=== PATIENT | female | born 1995 | race Hispanic/Latino ===

== ENCOUNTER 2017-04-12 08:44 | Emergency (ER) | payer BC ==
[2017-04-12] MEDS ORDERED: Benzonatate 100 MG CAP ONE (10:40)
--- NOTE | 2017-04-12 11:05 | RAD ---
PA AND LATERAL VIEWS CHEST: Date: 04/12/17 HISTORY: Cough and congestion. FINDINGS: The cardiomediastinum is normal. The lungs are well expanded and clear. The bony thorax is normal. IMPRESSION: Normal exam. POS: [facility]
[2017-04-12] MEDS ORDERED: Dexamethasone 4 mg/ml Vial ONE (11:15)
== END 2017-04-12 11:52 | disposition home or self-care (01) ==
LOC: ERS 08:44
DX: J40 Bronchitis, not specified as acute or chronic (principal); F32.9 Major depressive disorder, single episode, unspecified
CPT/HCPCS: 71020; 96372; J1100

== ENCOUNTER 2017-07-18 14:28 | Inpatient (IN) | payer BC ==
[2017-07-18] MEDS ORDERED: Ondansetron HCl/PF 4 MG/2 ML Vial ONE (14:58)
[2017-07-18] MEDS ORDERED: Morphine 4 MG/ML VIAL ONE (14:58)
[2017-07-18 15:07] LABS: #Basophils 0.1 thou/uL (0.0-0.2); #Eosinphils 0.1 thou/uL (0.0-0.7); #Lymphocytes 4.2 thou/uL (1.20-3.40); #Monocytes 0.6 thou/uL (0.11-0.59); #Neutrophils 5.6 thou/uL (1.40-6.50); %Basophils 0.8 % (0.0-1.0); %Eosinophils 0.7 % (0.0-10.0); %Lymphocytes 39.6 % (28.0-48.0); %Neutrophils 52.9 % (31.0-61.0); Hemoglobin 14.3 g/dL (12.0-16.0); Mean Corpuscular HGB CONC 33.3 g/dL (32.0-36.0); Mean Corpuscular Hemoglobin 31.2 pg (25.0-35.0); Mean Corpuscular Volume 93.6 fl (77.0-87.0); Mean Platelet Volume 8.8 fL (7.4-10.4); Platelet Count 289 thou/uL (130-400); RBC Distribution Width 11.7 % (11.5-14.5); Red Blood Cell (RBC) Count 4.58 mill/uL (4.00-5.20); White Blood Cell (WBC) Count 10.5 thou/uL (4.8-10.8)
[2017-07-18 15:29] LABS: ALT (SGPT) 18 U/L (8-55); AST (SGOT) 19 U/L (5-34); Albumin 5.2 g/dL (3.5-5.0); Alkaline Phosphatase 98 U/L (40-150); Anion Gap 17 mmol/L (10-20); BUN (Urea Nitrogen) 9 mg/dL (7.0-18.7); Bilirubin, Total 0.5 mg/dL (0.2-1.2); CK (CPK) 67 U/L (29-168); Calc. Creatinine Clearance 0 mL/min (70-130); Calcium 10.6 mg/dL (7.8-10.44); Carbon Dioxide 20 mmol/L (22-29); Chloride 105 mmol/L (98-107); Estimated GFR-MDRD 78; Globulin 3.4 g/dL (2.4-3.5); Glucose 89 mg/dL (70-105); Lipase 10 U/L (8-78); Potassium 4.1 mmol/L (3.5-5.1); Protein, Total 8.6 g/dL (6.0-8.3); Sodium 138 mmol/L (136-145)
[2017-07-18] MEDS ORDERED: Promethazine HCl 25 MG/ML VIAL ONE (16:46)
[2017-07-18 16:59] LABS: Bilirubin Negative (Negative); Blood, Urine Trace (Negative); Clarity CLOUDY (Clear); Glucose, Urine (Dipstick) Negative (Negative); Leukocyte Large (Negative); Nitrite Negative (Negative); Protein, Urine (Dipstick) Negative (Neg-Trace); Specific Gravity, Urine 1.015 (1.002-1.036); Urobilinogen 0.2 mg/dL (0.2-1.0)
[2017-07-18 17:01] LABS: Bacteria/HPF 2+ HPF (None Seen); Hyaline Casts/LPF 4-6 HYALINE CAST LPF (0-3 Hyaline); Pathc Cast-AUWi Flag 0.94 (0-2.49)
[2017-07-18 17:15] LABS: RBC/HPF 0-3 HPF (0-3)
--- NOTE | 2017-07-18 18:40 | HP ---
DATE OF ADMISSION: 07/18/2017 PRIMARY CARE PHYSICIAN: Linda Ortiz M.D. CHIEF COMPLAINT: Nausea, vomiting, abdominal cramping, and diarrhea with some fever. HISTORY OF PRESENT ILLNESS: The patient is a 22-year-old female who is admitted to the [facility] with 2-week history of fever with some nausea. She vomited twice today. This was associated w ith some abdominal cramping. Also, she has diarrhea for approximately 2 weeks with on and off blood and mucus. She did not go to the doctor because she thought that she had the flu. She had some body aches and muscle aches. She has extensive history of GI problems. Apparently in January, she was kenyatta janak for multiple UTIs with multiple antibiotics and she developed C. difficile infection colitis. Sh jaya had cholecystectomy done and she had recurrence of Clostridium difficile infection after she had br onchitis and was given antibiotics. PAST MEDICAL HISTORY: Also positive for chronic tachycardia. PAST SURGICAL HISTORY: 1. Cholecystectomy. 2. 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 CURRENT MEDICATIONS: Lorazepam 0.5 mg p.r.n. as needed, promethazine 0.5 mg p.r.n. as needed, dicycl omine 20 mg p.r.n. as needed, Zofran 4 mg p.r.n. as needed, Effexor 75 mg once a day and sleep aid ov [id number]. ALLERGIES: None. FAMILY HISTORY: Mother has some depression and anxiety. Father is healthy. He does not have any di agnosis. REVIEW OF SYSTEMS: All 14 systems were reviewed and symptoms only mentioned in HPI are positive plus occasional headaches and some shortness of breath during the episodes of sickness. PHYSICAL EXAMINATION: VITAL SIGNS: Her blood pressure is 128/70, pulse oximetry is 100% on room air. Pulse is 140. HEENT: Head: Atraumatic, normocephalic. Eyes: PERRLA. Conjunctivae pinkish. Oral mucosa is dry. NECK: Supple, no lymphadenopathy. Thyroid is not palpable. LUNGS: Clear. HEART: S1, S2 normal. No S3, no S4, no murmur. ABDOMEN: Soft, somewhat tender in the mid epigastric area and right side of the abdomen in the upper parts. No guarding, no masses. EXTREMITIES: No clubbing, cyanosis or edema. NEUROLOGIC: She is alert and oriented x4. There is not any sensorimotor deficits are present. Cran ial nerves are intact. LABORATORY DATA: Showed a white count of 10.5, hemoglobin 14.3, hematocrit 42.9, platelet count is 2 89. Sodium of 130, potassium 4.1, chloride 105, CO2 20, BUN 9, creatinine 0.92. Lactic acid 2.3, ca lcium 10.6, total protein 8.6, albumin 5.2, and the rest of chemistry within normal limits. Lipase i s 10. IMPRESSION: 1. Acute gastroenteritis of unclear etiology, most likely is related to Clostridium difficile infect ion, but we do not have positive testing back yet. 2. Tachycardia, most likely related to dehydration plus baseline tachycardia. 3. Depression/anxiety. 4. Metabolic acidosis, mild, secondary to bicarb loss with her BM. 5. Dehydration. PLAN: Admission to telemetry floor. Condition is fair. Activity: Bed rest and bathroom privileges . IV fluids. Normal saline at 150 mL per hour, Zofran p.r.n., Phenergan p.r.n. IV. GI consultation with Dr. Addison, who was notified by an emergency room physician. I am going to wait for C. difficile results before I start her on any medications. Cultures on her blood and urine are done. We are wa iting for the results. She will continue on intravenous fluids and GI consultation is in place with Dr. Addison.
--- NOTE | 2017-07-18 20:13 | CON ---
DATE OF CONSULTATION: 07/18/2017 HISTORY OF PRESENT ILLNESS: The patient is a 22-year-old female, who has been followed by Renata Donis for recurrent Clostridium difficile diarrhea. She underwent a fecal transplant on 06/24/20. On 07/10/2017, she underwent stool examination for lactoferrin and Clostridium difficile, all of which were negative. She reports for the last few days, she has been having diffuse abdominal cramp s and diarrhea. She has had nausea and vomiting as well. She has undergone previous colonoscopy at [facility] in 2016. She was diagnosed at that time with hemorrhoids and irritable bowel syndrome. She does report several bowel movements have been bloody. PAST MEDICAL HISTORY: Significant for, 1. Anxiety. 2. Recurrent Clostridium difficile diarrhea. 3. Irritable bowel syndrome. PAST SURGICAL HISTORY: Cholecystectomy, fecal transplantation, urinary tract infections. MEDICATIONS: Lorazepam as needed, promethazine as needed, dicyclomine 20 mg p.r.n. ALLERGIES: No known allergies. SOCIAL HISTORY: She does not smoke or drink. FAMILY HISTORY: Negative for GI or liver disease. REVIEW OF SYSTEMS: Ten systems were reviewed and were negative except for above. PHYSICAL EXAMINATION: GENERAL: Shows an ill-appearing female in no acute distress. VITAL SIGNS: Stable. She is afebrile. HEENT: Unremarkable. NECK: Supple. CHEST: Clear. CARDIOVASCULAR: Regular rate and rhythm. ABDOMEN: Soft and nontender without organomegaly or masses. Bowel sounds are present and normoactiv e. RECTAL: Deferred. EXTREMITIES: Normal. NEUROLOGIC: Nonfocal. LABORATORY DATA: Laboratory shows a white blood cell count 10.5, hemoglobin 14.3, hematocrit of 42.9 . Chemistries are significant for calcium 10.6, total serum protein 8.6, albumin 5.2, lactic acid is 2.3. Urine shows large leukocyte esterase. Urine wbc's greater than 50, 4-6 squamous epithelial ce lls, and 2+ bacteria. ASSESSMENT: 1. Abdominal pain, diarrhea, nausea, and vomiting. Possibilities include recurrent Clostridium diff icile infection. 2. History irritable bowel syndrome. 3. Internal hemorrhoids. 4. Urinary tract infection. 5. Dehydration. RECOMMENDATIONS: 1. Admission. 2. IV fluids. 3. Clear liquids. 4. Urinary culture prior to beginning antibiotics. 5. Stool for Clostridium difficile prior to beginning any treatment. 6. We will follow with you.
[2017-07-18 20:37] LABS: Lactic Acid 1.2 mmol/L (0.5-2.2)
[2017-07-18] MEDS: Promethazine HCl 25 MG/ML VIAL IM/IV PRN (23:59)
[2017-07-19 00:09] VITALS: BMI 30.2
[2017-07-19] MEDS: Sodium Chloride 0.9% 1,000 ML IV SCH ×2 (08:24)
[2017-07-19] MEDS: Ondansetron HCl/PF 4 MG/2 ML Vial IVP PRN (12:16)
--- NOTE | 2017-07-19 14:55 | PRG ---
DATE OF SERVICE: 07/19/2017 SUBJECTIVE: The patient is seen and examined at bedside. She had one bowel movement, which was loos e around 2:00 this morning, but she was not able to get the sample as she flushed it, so we still wer e not able to get any sample for the testing. OBJECTIVE: VITAL SIGNS: Blood pressure is 103/66, pulse is 91, temperature is 97.7, respiratory rate is 16, O2 saturation is 100. HEENT: Head is atraumatic, normocephalic. Eyes PERRLA, conjunctivae pink. Oral mucosa is moist tod ay. NECK: Supple, no JVD. LUNGS: Clear. HEART: S1, S2 normal. ABDOMEN: Soft, nontender, obese. Bowel sounds are present. EXTREMITIES: No clubbing, cyanosis or edema. NEUROLOGIC: She is alert and oriented x4. There is not any motor or sensory deficit present. Crani al nerves are intact. LABORATORY DATA: Since she was not able to give us any stool sample, we do not have any lab works to day. Microbiology showed blood cultures negative x2. Stool occult blood came back negative. ASSESSMENT AND PLAN: 1. Recurrent diarrhea of unclear etiology at this point. Since she was not able to give us a stool specimen, as soon as she has another bowel movement, we would check her for C. difficile antigen and toxins along with lactoferrin and stool culture. Since she is at high risk for recurrent C. difficil e infection, we have to have proven culture positive workup before we start using any antimicrobials. 2. Tachycardia, resolved. 3. Metabolic acidosis, mild. We do not have any BMP this morning, but most likely her acidosis impr torsten with IV fluids. 4. Dehydration, improved. PLAN: As mentioned above, I am going to stop her IV fluids since she is taking fluids orally now and her diarrhea stopped and she received enough fluids so far. The patient was seen by Dr. Addison, who r ecommends to obtain culture before we start treating her empirically, so that is what we are going t o do, so we are waiting for the stool sample tested.
[2017-07-19] MEDS: Promethazine HCl 25 MG/ML VIAL IM/IV PRN (15:01)
--- NOTE | 2017-07-19 15:37 | PRG ---
DATE OF SERVICE: 07/19/2017 SUBJECTIVE: Ms. Tiwari around 3:00 p.m. today, went to the bathroom and she was trying to wash her fa ce and she all of a sudden started feeling dizzy. She tried to ease herself down to the floor, but s he fell and lost consciousness, this was unwitnessed incident and she was found by the nurse and was taken to her bed and during this time, her cardiac monitoring did not show any cardiac arrhythmia. H er vitals were checked and they were within normal limits. I do not expect that this was significant syncopal episodes other than vasovagal etiology. We will check orthostatic changes on her. PHYSICAL EXAMINATION: GENERAL: Did not reveal any changes except for some twitching of her eyebrows bilaterally. NEUROLOGICAL: Did not show any abnormalities. She is able to answer my all questions and she follow s my commands. She moves all 4 extremities. Neurological examination is nonfocal. LUNGS: Clear. HEART: S1, S2, slightly tachycardic. No S3, no S4. PLAN: We will do neuro checks on her every 2 hours and we will obtain the CT of the brain without co ntrast.
--- NOTE | 2017-07-19 19:17 | CT ---
CT OF HEAD NONCONTRAST 07/19/17 INDICATION: Unwitnessed fall with headache, pain. FINDINGS: There is no evidence of ventriculomegaly, mass effect, midline shift or acute intracranial hemorrhage . No depressed calvarial fracture or pneumocephalus. IMPRESSION: There is no evidence of acute intracranial hemorrhage or mass effect. POS: [facility]
--- NOTE | 2017-07-20 | PRG ---
DATE OF SERVICE: 07/19/2017 SUBJECTIVE: The patient had nausea, but no vomiting. She reports she has had no bowel movements sin ce yesterday. OBJECTIVE: VITAL SIGNS: Temperature 97.9, pulse 113, respiratory rate 18, blood pressure 117/74. LABORATORY STUDIES: Microbiology shows influenza A and B to be negative. Urine culture primarily sh owed 25,000 to 50,000 mixed skin chaz present. Blood cultures are negative. Stool for occult blood is negative and stool for C.diff is not been submitted. Patient underwent a brain CT today showed n o abnormalities. ASSESSMENT: 1. Abdominal pain, diarrhea, nausea, and vomiting - it would be unusual for Clostridium difficile to not have any bowel movements over 24-hours. Therefore, I doubt this is her recurrent Clostridium di fficile infection. 2. History of irritable bowel syndrome. 3. Dehydration. RECOMMENDATIONS: 1. Obtain stool for Clostridium difficile prior to beginning any empiric treatment. 2. Await urine culture prior to beginning antibiotics. 3. Antiemetics.
[2017-07-20] MEDS: Venlafaxine HCl XR 75 MG CAP PO SCH (08:49)
[2017-07-20] MEDS: Ondansetron HCl/PF 4 MG/2 ML Vial IVP PRN (10:19)
[2017-07-20] MEDS: Meclizine HCl 25 MG TAB PO SCH ×2 (11:57→17:42)
--- NOTE | 2017-07-20 14:29 | PRG ---
DATE OF SERVICE: 07/20/2017 SUBJECTIVE: The patient is seen and examined at the bedside. She complains about nausea, especially after drinking water. She did not have any bowel movements yesterday or today. She noticed that wh en she changes position, she gets very dizzy. OBJECTIVE: VITAL SIGNS: Blood pressure is 118/72, temperature is 98.4, pulse is 104, respiratory rate is 18, an d O2 saturation is 96% on room air. HEENT: Atraumatic, normocephalic. Eyes are PERRLA. Conjunctivae pinkish. Oral mucosa is moist. NECK: Supple. LUNGS: Clear. HEART: S1, S2 normal, no S3, no S4, no murmur. Slightly tachycardic. ABDOMEN: Obese, soft, and nontender. EXTREMITIES: No clubbing, cyanosis or edema. NEUROLOGIC: She is alert and oriented x4. There is no any sensory or motor deficits present. Crani al nerves are intact. She developed dizziness while changing position from lying flat to sitting up, which lasts up to 20 seconds and it gets better after that. None today. IMPRESSION: 1. Abdominal pain, diarrhea, nausea, and vomiting without additional bowel movement in the last almo st 30 hours, so we doubt that she has recurrent Clostridium difficile infection, although she had 3 e pisodes in the past. 2. Irritable bowel syndrome. 3. Dehydration, improved. 3. Benign positional vertigo. PLAN: Start her on meclizine. She is nauseated with taking liquids and food. We will see how this helps and she should be ambulating more and she should be able to go home in the next 24 hours since her urine culture came back 25,000-50,000 colonies of mixed skin chaz, which is nondiagnostic, so [place] does not have any UTI and blood cultures came back negative in 48 hours, so we are going to ambulat e her and see whether we can send her home tonight. If not, she should be able to go home tomorrow, maybe on p.r.n. meclizine for her benign positional vertigo and some antiemetics and antinausea medic ation.
[2017-07-20] MEDS: Promethazine HCl 25 MG/ML VIAL IM/IV PRN (14:36)
--- NOTE | 2017-07-20 16:51 | PRG ---
DATE OF SERVICE: 07/20/2017 SUBJECTIVE: The patient has not had any bowel movements today or yesterday. She is complaining of n ausea, but has not had any vomiting. OBJECTIVE: Temperature 98.6, pulse 104, respiratory rate 18, blood pressure 118/72. ASSESSMENT: 1. Persistent nausea - patient had normal endoscope in 02/2017 for similar symptoms. 2. Diarrhea - this seems to have resolved when the patient came into the hospital. RECOMMENDATIONS: 1. Continue antiemetics. 2. We will try a trial of IV Reglan. 3. Stool for C. difficile when she does eventually have a bowel movement.
[2017-07-20] MEDS: Metoclopramide HCl 10 MG/2 ML VIAL IVP SCH (21:32)
[2017-07-21] MEDS: Metoclopramide HCl 10 MG/2 ML VIAL IVP SCH ×3 (05:07→21:09)
[2017-07-21] MEDS: Meclizine HCl 25 MG TAB PO SCH ×3 (05:07→17:16)
[2017-07-21 05:52] LABS: #Eosinphils 0.1 thou/uL (0.0-0.7); #Monocytes 0.6 thou/uL (0.11-0.59); #Neutrophils 4.9 thou/uL (1.40-6.50); %Basophils 0.5 % (0.0-1.0); %Eosinophils 1.3 % (0.0-10.0); %Lymphocytes 34.9 % (28.0-48.0); %Neutrophils 56.4 % (31.0-61.0); Hemoglobin 12.4 g/dL (12.0-16.0); Mean Corpuscular HGB CONC 34.1 g/dL (32.0-36.0); Mean Platelet Volume 9.5 fL (7.4-10.4); Platelet Count 226 thou/uL (130-400); RBC Distribution Width 11.7 % (11.5-14.5); Red Blood Cell (RBC) Count 3.87 mill/uL (4.00-5.20); White Blood Cell (WBC) Count 8.7 thou/uL (4.8-10.8)
[2017-07-21 06:16] LABS: ALT (SGPT) 14 U/L (8-55); AST (SGOT) 18 U/L (5-34); Alkaline Phosphatase 73 U/L (40-150); Anion Gap 13 mmol/L (10-20); BUN (Urea Nitrogen) 14 mg/dL (7.0-18.7); Bilirubin, Total 0.7 mg/dL (0.2-1.2); CRP (Inflammatory) 1.01 mg/dL (= or < 0.5); Calc. Creatinine Clearance 111 mL/min (70-130); Calcium 9.7 mg/dL (7.8-10.44); Carbon Dioxide 23 mmol/L (22-29); Chloride 107 mmol/L (98-107); Estimated GFR-MDRD 80; Globulin 2.8 g/dL (2.4-3.5); Glucose 63 mg/dL (70-105); Potassium 3.6 mmol/L (3.5-5.1); Protein, Total 6.8 g/dL (6.0-8.3); Sodium 139 mmol/L (136-145)
[2017-07-21] MEDS: Venlafaxine HCl XR 75 MG CAP PO SCH (08:28)
--- NOTE | 2017-07-21 12:23 | PRG ---
DATE OF SERVICE: 07/21/2017 SUBJECTIVE: The patient continues to complain of some dizziness and nausea. She has had some cracke rs this morning. She says she may feel like eating lunch. She finally have submitted a stool sample for C. diff; however, this was a formed stool. OBJECTIVE: VITAL SIGNS: Temperature is 99.3, pulse 103, respiratory rate 16 and blood pressure 99/58. CHEST: Clear. CARDIOVASCULAR: Regular rate and rhythm. ABDOMEN: Soft and nontender. No rebound or guarding is noted. No hepatosplenomegaly is appreciable . LABORATORY DATA: Shows a white blood cell count of 8.7, hemoglobin 12.4 and hematocrit 36.4. Chemis tries show a glucose of 63. C-reactive protein of 1.01. ASSESSMENT: 1. Persistent nausea - this may be from some vertigo. 2. Diarrhea - resolved and the patient is now having formed stool. 3. History of Clostridium difficile. RECOMMENDATIONS: 1. A 24-hour urine collection for 5-HIAA. 2. Repeat urinalysis. 3. Await stool results, although C. diff is unlikely with formed stool. 4. Continue IV metoclopramide.
[2017-07-21 13:12] LABS: Bilirubin Small (Negative); Blood, Urine Trace (Negative); Clarity CLOUDY (Clear); Glucose, Urine (Dipstick) Negative (Negative); Leukocyte Moderate (Negative); Nitrite Negative (Negative); Protein, Urine (Dipstick) Trace mg/dL (Neg-Trace)
[2017-07-21 13:15] LABS: Bacteria/HPF 1+ HPF (None Seen); Hyaline Casts/LPF 4-6 HYALINE CAST LPF (0-3 Hyaline)
[2017-07-21 13:17] LABS: Yeast-AUWi Flag 78.1 (0-25.0)
[2017-07-21 13:33] LABS: RBC/HPF 0-3 HPF (0-3)
[2017-07-21 13:34] LABS: Yeast-All Forms None Seen HPF (None Seen)
--- NOTE | 2017-07-21 14:26 | PDOC.PN ---
- Subjective Encounter Start Date: 07/21/17 Encounter Start Time: 08:00 Pt seen for followup re: nausea. Denies chest pain, shortness of breath, fevers or chills. No diarrhea. - Objective Resuscitation Status: Resuscitation Status FULL:Full Resuscitation MAR Reviewed: Yes Vital Signs & Weight: Vital Signs (12 hours) Temp Pulse Resp BP BP Pulse Ox 07/21/17 11:38 99 F 87 18 105/67 99 07/21/17 07:45 99.3 F 103 H 16 97 07/21/17 07:44 99.3 F 103 H 16 99/58 L 97 07/21/17 04:00 98.6 F 98 18 99/58 L 98 Weight Admit Weight 160 lb Weight 155 lb 1.6 oz I&O: 07/20/17 07/21/17 07/22/17 06:59 06:59 06:59 Intake Total 240 Output Total 125 Balance 115 Result Diagrams: 07/21/17 04:13 07/21/17 04:13 EKG Reviewed by me: Yes (Tele: NSR) Phys Exam - Physical Examination Constitutional: NAD HEENT: moist MMs Neck: supple Respiratory: clear to auscultation bilateral Cardiovascular: RRR Gastrointestinal: soft, non-tender, no distention, positive bowel sounds Neurological: moves all 4 limbs Psychiatric: normal affect Dx/Plan (1) Nausea Code(s): R11.0 - NAUSEA Status: Acute (2) Acute gastroenteritis Code(s): K52.9 - NONINFECTIVE GASTROENTERITIS AND COLITIS, UNSPECIFIED Status : Acute - Plan PT/OT, out of bed/ambulate, DVT proph w/SCDs Continue IV fluids, antiemetics. Await stool cultures. Urinalysis still suggestive of UTI, await urine cultures. * . Review of Systems - Review of Systems Constitutional: negative: fever, chills, sweats, weakness, malaise ENT: negative: Ear Pain, Ear Discharge, Nose Pain, Nose Discharge, Nose Congestion, Mouth Pain, Mouth Swelling, Throat Pain, Throat Swelling Respiratory: negative: Cough, Dry, Shortness of Breath, Hemoptysis, SOB with Excertion, Pleuritic Pain, Sputum, Wheezing Cardiovascular: negative: chest pain, palpitations, orthopnea, paroxysmal nocturnal dyspnea, edema, light headedness Gastrointestinal: Nausea. negative: Vomiting, Abdominal Pain, Diarrhea, Constipation, Melena, Hematochezia Neurological: Other (dizziness) - Medications/Allergies Allergies/Adverse Reactions: Allergies Allergy/AdvReac Type Severity Reaction Status Date / Time No Known Drug Allergies Allergy Verified 06/21/17 13:04 Medications: Current Medications Meclizine HCl (Antivert) 25 mg PO 0600,1200,1800 [facility] Last Admin: 07/21/17 12:53 Dose: 25 mg Metoclopramide HCl (Reglan) 10 mg IVP Q8HR [facility] Last Admin: 07/21/17 05:07 Dose: 10 mg Ondansetron HCl (Zofran) 4 mg IVP Q6H PRN PRN Reason: Nausea/Vomiting Last Admin: 07/20/17 10:19 Dose: 4 mg Venlafaxine HCl (Effexor Xr) 75 mg PO DAILY [facility] Last Admin: 07/21/17 08:28 Dose: 75 mg
[2017-07-22] MEDS: Metoclopramide HCl 10 MG/2 ML VIAL IVP SCH (05:48)
[2017-07-22] MEDS: Meclizine HCl 25 MG TAB PO SCH ×3 (05:48→17:37)
[2017-07-22] MEDS: Venlafaxine HCl XR 75 MG CAP PO SCH (08:27)
[2017-07-22] MEDS: Metoclopramide HCl 10 MG TAB PO SCH ×3 (11:40→20:20)
[2017-07-22] MEDS: Ondansetron HCl/PF 4 MG/2 ML Vial IVP PRN (13:08)
--- NOTE | 2017-07-22 14:19 | DIS ---
DATE OF ADMISSION: 07/18/2017 DATE OF DISCHARGE: 07/22/2017 PRIMARY CARE PROVIDER: Linda Ortiz M.D. DISCHARGE DISPOSITION: Home. FINAL DIAGNOSES: Irritable bowel syndrome, abdominal pain, nausea, obesity, sinus tachycardia, dizzi ness. DISCHARGE MEDICATIONS: Effexor XR 75 a day, Reglan 10 mg p.o. a.c. and at bedtime, meclizine 25 mg p .o. q.8 hours p.r.n. dizziness. ALLERGIES: No known allergies. PENDING AT THE TIME OF DISCHARGE: Results of 24-hour urine for 5-Hydroxyindoleacetic acid. CODE STATUS: FULL. HOSPITAL COURSE: The patient was admitted to the [facility] through [facility] for nausea, vomiting, abdominal pain, diarrhea. Per surgery, cholecystectomy. It is pertinent that the patient had a prior history of C. difficile colitis. She was seen in consultation by Dr. Hal Addison. She had no procedures during her hospital stay. Her stool workup showed presenc e of elevated lactoferrin, Campylobacter, Shiga toxin negative. Influenza A and B was negative. Blo od cultures negative at 48 hours, fecal occult blood negative. We were unable to do a titer for C. d iff and she had no diarrhea during her hospital stay. Urine culture was mixed skin and enteric chaz . LABORATORY DATA: White count normal at 10.5, repeat 8.7. Hemoglobin normal at 14.3, 12.4. Her init ial lactic acid was minimally elevated at 2.3 it came down to 1.2. Her Comp metabolic profile was un remarkable except for calcium of 10.6, it came down to 9.7. DISCHARGE MEDICATIONS: The patient is currently doing well. She was initially placed on IV Protonix and IV Reglan. She is being discharged on Reglan 10 mg p.o. a.c. and at bedtime, Antivert as needed for dizziness, her usual dose of Effexor. DISCHARGE FOLLOWUP: She has been asked to see Dr. Linda Ortiz and follow up in 7 days, Dr. Renata wu in follow up in 7-10 days.
--- NOTE | 2017-07-22 15:56 | PDOC.PN ---
- Subjective Encounter Start Date: 07/22/17 Encounter Start Time: 15:55 Subjective: minimal nausea - Objective Resuscitation Status: Resuscitation Status FULL:Full Resuscitation MAR Reviewed: Yes Vital Signs & Weight: Vital Signs (12 hours) Temp Pulse Resp BP BP Pulse Ox 07/22/17 12:36 97.9 F 110 H 17 126/78 98 07/22/17 08:23 98.3 F 109 H 18 104/61 98 07/22/17 08:00 98.3 F 109 H 18 07/22/17 04:00 98.1 F 105 H 20 107/60 97 Weight Admit Weight 160 lb Weight 155 lb 1.6 oz I&O: 07/21/17 07/22/17 07/23/17 06:59 06:59 06:59 Intake Total 240 240 Output Total 125 300 Balance 115 -60 Result Diagrams: 07/21/17 04:13 07/21/17 04:13 Phys Exam - Physical Examination Constitutional: NAD HEENT: oral pharynx no lesions Neck: no JVD Respiratory: clear to auscultation bilateral Cardiovascular: RRR, no significant murmur Gastrointestinal: soft, non-tender, positive bowel sounds Musculoskeletal: no edema Dx/Plan (1) IBS (irritable bowel syndrome) Status: Acute (2) Abdominal pain Code(s): R10.9 - UNSPECIFIED ABDOMINAL PAIN Status: Acute Qualifiers: Abdominal location: generalized Qualified Code(s): R10.84 - Generalized abdominal pain Comment: much different than previosu. now a migratory crampy pain (3) Nausea Code(s): R11.0 - NAUSEA Status: Acute (4) Obesity (BMI 30.0-34.9) Code(s): E66.9 - OBESITY, UNSPECIFIED Status: Chronic (5) Sinus tachycardia Code(s): R00.0 - TACHYCARDIA, UNSPECIFIED Status: Resolved - Plan finish collection of 24 hr urine for 5HIAA -: cont po reglan,discussed with Carmine Addison and Gagandeep * .
[2017-07-22] MEDS ORDERED: Enoxaparin Sodium 30 MG/0.3 ML SYRINGE SC SCH (21:00)
--- NOTE | 2017-07-23 01:20 | PRG ---
DATE OF SERVICE: 07/22/2017 SUBJECTIVE: Ms. Tiwari is doing well now. She states she is ready to go home; however, when talking to hospitalist, she was asking for nausea medicine earlier. The nurses report that when she begin na useated, her heart rate when up. It was determined that a 24-hour urine collection been ordered some time in the past day or two and this has not apparently been completed and the decision will be made to hold her until that 24-hour urine collection is complete. At present, she denies any nausea, vomi ting, abdominal pain or diarrhea. She states that when she came in she had vomiting and chills and h er heart rate was up and she was having diarrhea. She thought she maybe had C. diff again; however, the stool for C. diff done just a few days before her admission in the outpatient setting was negativ e. She is not having any diarrhea now. She does report that she tried the Colestid at home, but it did not really help very much. PRESENT MEDICATIONS: Meclizine, Reglan, Zofran and Effexor. HOME MEDICATIONS: Reglan p.r.n., rifaximin, meclizine and Colestid. OBJECTIVE: VITAL SIGNS: Temperature is 98, pulse 97 and blood pressure 126/78. LUNGS: Clear. HEART: Regular rate and rhythm without clicks or murmurs. ABDOMEN: Soft and nontender. LABORATORY STUDIES: White count 8.7, hemoglobin 12.4 and platelet count 226. Comprehensive metaboli c profile normal. CRP is 1. Stool lactoferrin on 07/21 was positive. Shigella and Campylobacter an d cultures were all negative on 07/21. Urine from 07/18 showed skin chaz and contaminant. Influenz a 07/18 negative. Blood cultures 07/18 negative. Stool occult blood 07/18 negative. Stool culture 07/10, C. difficile 07/10 and lactoferrin 07/10, all negative. ASSESSMENT AND PLAN: 1. Intermittent bouts of nausea, vomiting, status post-cholecystectomy, negative esophagogastroduode noscopy. She had C. diff in the past, but not presently. She has had a colonoscopy, which was negat maria antonia and had a fecal transplant. There have been no signs of recurrent Clostridium difficile since he r fecal transplant. 2. Mild tachycardia. She does not appear to be dehydrated at this time. She is being evaluated for , and that is reasonable. It may be also reasonable to evaluate the patient for pheochromocyto ma, which she continues the bouts of tachycardia and vomiting, and diarrhea. Another concern would b e pulmonary embolus, although she shows no clinical features of this. She is going to stay and be in bed. She probably needs to be on deep venous thrombosis prophylaxis.
[2017-07-23 05:42] LABS: Anion Gap 16 mmol/L (10-20); BUN (Urea Nitrogen) 10 mg/dL (7.0-18.7); Calc. Creatinine Clearance 116 mL/min (70-130); Calcium 9.9 mg/dL (7.8-10.44); Carbon Dioxide 21 mmol/L (22-29); Chloride 106 mmol/L (98-107); Estimated GFR-MDRD 84; Glucose 63 mg/dL (70-105); Potassium 3.5 mmol/L (3.5-5.1); Sodium 139 mmol/L (136-145)
[2017-07-23] MEDS: Meclizine HCl 25 MG TAB PO SCH ×2 (06:06→12:10)
[2017-07-23] MEDS: Venlafaxine HCl XR 75 MG CAP PO SCH (08:07)
[2017-07-23] MEDS: Metoclopramide HCl 10 MG TAB PO SCH ×2 (08:08→12:10)
--- NOTE | 2017-07-23 08:45 | PDOC.PN ---
- Subjective Encounter Start Date: 07/23/17 Encounter Start Time: 08:41 Subjective: ok - Objective Resuscitation Status: Resuscitation Status FULL:Full Resuscitation MAR Reviewed: Yes Vital Signs & Weight: Vital Signs (12 hours) Temp Pulse Resp BP Pulse Ox 07/23/17 08:04 98.7 F 119 H 15 109/67 97 07/23/17 04:00 98.6 F 117 H 22 H 99/62 97 Weight Admit Weight 160 lb Weight 155 lb 1.6 oz I&O: 07/22/17 07/23/17 07/24/17 06:59 06:59 06:59 Intake Total 240 750 Output Total 300 750 Balance -60 0 Result Diagrams: 07/21/17 04:13 07/23/17 04:29 Phys Exam - Physical Examination Constitutional: NAD Neck: no JVD Respiratory: clear to auscultation bilateral Cardiovascular: RRR, no significant murmur Gastrointestinal: soft, positive bowel sounds Musculoskeletal: no edema Dx/Plan (1) IBS (irritable bowel syndrome) Status: Acute (2) Abdominal pain Code(s): R10.9 - UNSPECIFIED ABDOMINAL PAIN Status: Acute Qualifiers: Abdominal location: generalized Qualified Code(s): R10.84 - Generalized abdominal pain Comment: much different than previosu. now a migratory crampy pain (3) Nausea Code(s): R11.0 - NAUSEA Status: Acute (4) Obesity (BMI 30.0-34.9) Code(s): E66.9 - OBESITY, UNSPECIFIED Status: Chronic (5) Sinus tachycardia Code(s): R00.0 - TACHYCARDIA, UNSPECIFIED Status: Resolved - Plan doing well on reglan po -: obtain D-Dimer, 24 hr urine for metanephrines * .
[2017-07-23] MEDS ORDERED: Metoclopramide HCl 10 MG TAB PO PRN (14:21)
[2017-07-23 17:25] VITALS: BP 114/69; TEMP 98.6
--- NOTE | 2017-07-23 18:05 | DIS ---
PRIMARY CARE PROVIDER: Linda Ortiz M.D. DATE OF ADMISSION: 07/18/2017 DATE OF DISCHARGE: 07/23/2017 DISCHARGE DISPOSITION: Discharged home. FINAL DIAGNOSES: Irritable bowel syndrome, abdominal pain, nausea, obesity, sinus tachycardia, dizzi ness. DISCHARGE MEDICATIONS: Effexor XR 75 one a day, Reglan 10 mg p.o. a.c. and at bedtime, meclizine 25 mg p.o. q.8 hours p.r.n. dizziness. ALLERGIES: None. PENDING AT THE TIME OF DISCHARGE: Results of a 24-hour urine for 5-hydroxyindoleacetic acid and meta nephrines. CODE STATUS: FULL. HOSPITAL COURSE: The patient was admitted to [facility] ([place], [place]) through [facility] for nausea, vomiting, abdominal pain, and diarrhea. Prior surgery, cholecystectomy. It i s pertinent that the patient had a prior history of C. diff colitis. She was seen in consultation by Dr. Hal Addison and then by his associate, Dr. Alex Donis. She had no procedures during her hospital stay. Her stool workup was positive only for elevated lactoferrin. Influenza A and B were negative. Blood cultures were negative. Fecal occult blood negative, but not able to do Clostridium difficile as she had formed stools. LABORATORY DATA: White count 2.5, repeat 8.7; hemoglobin normal at 14.3 and 12.4. Lactic acid is mi nimally elevated at 2.3 on admission, came down to 1.2. Comprehensive metabolic profile was unremark able except for calcium 10.6 which came down to 9.7. Her discharge was delayed one day for baironio n of her urine. DISCHARGE MEDICATIONS: She is on Reglan 10 mg p.o. a.c. and at bedtime with no vomiting, Antivert 25 mg q.8 hours for dizziness, her usual dose of Effexor 75 mg a day. I have discussed with the family and with the patient, her most likely diagnosis is anxiety, depressi on, or other psychiatric problems. They are in agreement. They state her PCP has also such chaparroicifernando mariano working on getting her therapy. She has been asked to be seen by Dr. Ortiz in 1 week for rupal keita, to follow up with Dr. Donis about the Reglan and 24-hour urine for metanephrine and 5-hydroxyi ndoleacetic acid. Other laboratory done: D-dimer was less than 0.27 suggesting no current probabili ty of pulmonary embolus or deep vein thrombosis.
--- NOTE | 2017-07-23 21:40 | PRG ---
DATE OF SERVICE: 07/23/2017 SUBJECTIVE: Ms. Arreguin feels better today. She has had no vomiting, no diarrhea. PHYSICAL EXAMINATION: VITAL SIGNS: Temperature is 98, pulse is still 119 per the nurse, blood pressure is 108/69. LUNGS: Clear. HEART: Regular rate and rhythm without clicks or murmurs. ABDOMEN: Soft, nontender. LABORATORY DATA: No other labs today. D-dimer; however, was less than 0.27. Basic metabolic profil e is normal with no signs of dehydration. ASSESSMENT: Tachycardia of unclear etiology. D-dimer screening for PE was negative. She is on some Reglan which could be affecting her. She is on also some Zofran, other medications and she has been off of her Effexor, which maybe is causing some of this. A 24-hour urine was checked for metanephri jasper is pending, 24-hour urine for is pending. RECOMMENDATIONS: When the patient goes home, I think she can go on p.r.n. Reglan. She can go back o n her Effexor, she states that it did help and was started after her cholecystectomy. She can use Co lestid which she has at home p.r.n. for diarrhea, not to be taken within 2-3 hours of other medicatio ns and I would change her Reglan to p.r.n. We will talk with Dr. Rivas with regard to tachycardia at this time. On my exam, she had a normal pulse this afternoon, but again her pulse was listed at 119 at noon.
[2017-07-26 08:21] LABS: 5 HIAA,Urine 6.7 mg/L (Undefined); 5 HIAA-24H Urine 4.4 mg/24 hr (0.0-14.9)
[2017-07-26 17:13] LABS: Metanephrine,Ur 494 ug/L (Undefined); Metanephrines Total-24H 321 ug/24 hr (45-290); Normetanephrine,Ur 486 ug/L (Undefined); Normetanephrines-24H U 316 ug/24 hr (82-500)
== END 2017-07-23 17:56 | disposition home or self-care (01) | DRG 392 ==
LOC: ERS 14:28 → 2NO 16:51
PROVIDERS: ADMIT Internal Medicine; ATTEND Internal Medicine
DX: K58.0 Irritable bowel syndrome with diarrhea (principal); E87.2 Acidosis; N39.0 Urinary tract infection, site not specified; E86.0 Dehydration; E66.9 Obesity, unspecified; R00.0 Tachycardia, unspecified; K64.8 Other hemorrhoids; Z68.30 Body mass index [BMI] 30.0-30.9, adult; F41.8 Other specified anxiety disorders
CPT/HCPCS: 36415; 70450; 80048; 80053; 81003; 81015; 82274; 82550; 83497; 83605; 83630; 83690; 83735; 83835; 85025; 85379; 86140; 87040; 87045; 87046; 87086; 87449; 87899; 93005; 96361; 96374; 96375; A4353; J1650; J2270; J2405; J2550; J2765

== ENCOUNTER 2017-08-18 20:22 | Emergency (ER) | payer BC ==
[2017-08-18] MEDS ORDERED: Ondansetron HCl/PF 4 MG/2 ML Vial ONE ×2 (20:43→21:46)
[2017-08-18 20:49] LABS: #Basophils 0.1 thou/uL (0.0-0.2); #Eosinphils 0.1 thou/uL (0.0-0.7); #Lymphocytes 4.3 thou/uL (1.20-3.40); #Monocytes 0.7 thou/uL (0.11-0.59); #Neutrophils 5.4 thou/uL (1.40-6.50); %Basophils 0.5 % (0.0-1.0); %Eosinophils 0.6 % (0.0-10.0); %Lymphocytes 40.7 % (28.0-48.0); %Monocytes 6.8 % (0.0-4.0); %Neutrophils 51.5 % (31.0-61.0); Mean Corpuscular Hemoglobin 31.3 pg (25.0-35.0); Mean Corpuscular Volume 92.2 fl (77.0-87.0); Mean Platelet Volume 8.6 fL (7.4-10.4); Platelet Count 267 thou/uL (130-400); Red Blood Cell (RBC) Count 4.16 mill/uL (4.00-5.20); White Blood Cell (WBC) Count 10.5 thou/uL (4.8-10.8)
[2017-08-18 21:10] LABS: ALT (SGPT) 25 U/L (8-55); AST (SGOT) 20 U/L (5-34); Albumin 4.6 g/dL (3.5-5.0); Alkaline Phosphatase 84 U/L (40-150); Anion Gap 15 mmol/L (10-20); BUN (Urea Nitrogen) 8 mg/dL (7.0-18.7); Bilirubin, Total 0.3 mg/dL (0.2-1.2); Calc. Creatinine Clearance 0 mL/min (70-130); Calcium 9.9 mg/dL (7.8-10.44); Carbon Dioxide 23 mmol/L (22-29); Chloride 106 mmol/L (98-107); Estimated GFR-MDRD 88; Globulin 3.5 g/dL (2.4-3.5); Glucose 89 mg/dL (70-105); Lipase 8 U/L (8-78); Potassium 3.7 mmol/L (3.5-5.1); Protein, Total 8.1 g/dL (6.0-8.3); Sodium 140 mmol/L (136-145)
== END 2017-08-18 22:32 | disposition home or self-care (01) ==
LOC: ERS 20:22
DX: R11.2 Nausea with vomiting, unspecified (principal); E86.0 Dehydration; F41.9 Anxiety disorder, unspecified; F32.9 Major depressive disorder, single episode, unspecified; Z79.899 Other long term (current) drug therapy
CPT/HCPCS: 80053; 83690; 85025; 96361; 96374; 96376; J2405

== ENCOUNTER 2017-08-26 18:16 | Emergency (ER) | payer BC ==
[2017-08-26 19:47] LABS: Bilirubin Small (Negative); Blood, Urine Small (Negative); Clarity TURBID (Clear); Glucose, Urine (Dipstick) Negative (Negative); Leukocyte Large (Negative); Nitrite Negative (Negative); Protein, Urine (Dipstick) 100 mg/dL (Neg-Trace); Specific Gravity, Urine 1.042 (1.002-1.036); pH, Urine 6.5 (5.0-9.0)
[2017-08-26 19:48] LABS: Bacteria/HPF 2+ HPF (None Seen); Pathc Cast-AUWi Flag 2.64 (0-2.49); Yeast-AUWi Flag 135.6 (0-25.0)
[2017-08-26 19:54] LABS: Pregnancy Test - Urine (BHCG) Negative (Negative); Pregu Control Background? CLEAR/WHITE (CLR/WHITE); Pregu Control Bar Appear? YES (CONTROL BAR); Specific Gravity 1.042 (1.002-1.036)
[2017-08-26 19:56] LABS: #Basophils 0.2 thou/uL (0.0-0.2); #Eosinphils 0.1 thou/uL (0.0-0.7); #Lymphocytes 4.2 thou/uL (1.20-3.40); #Monocytes 0.7 thou/uL (0.11-0.59); #Neutrophils 5.8 thou/uL (1.40-6.50); %Basophils 1.4 % (0.0-1.0); %Eosinophils 0.6 % (0.0-10.0); %Lymphocytes 38.7 % (28.0-48.0); %Monocytes 6.1 % (0.0-4.0); %Neutrophils 53.2 % (31.0-61.0); Mean Corpuscular HGB CONC 32.4 g/dL (32.0-36.0); Mean Corpuscular Hemoglobin 30.3 pg (25.0-35.0); Mean Corpuscular Volume 93.5 fl (77.0-87.0); Mean Platelet Volume 9.1 fL (7.4-10.4); Platelet Count 338 thou/uL (130-400); RBC Distribution Width 11.9 % (11.5-14.5); Red Blood Cell (RBC) Count 4.62 mill/uL (4.00-5.20)
[2017-08-26 19:57] LABS: Crystals/HPF 1+ CA OXALATE HPF (Negative); Hyaline Casts/LPF 0-3 HYALINE CAST LPF (0-3 Hyaline); Other Casts/LPF None Seen LPF (0-3 Hyaline); Yeast-All Forms None Seen HPF (None Seen)
[2017-08-26 20:18] LABS: ALT (SGPT) 14 U/L (8-55); AST (SGOT) 17 U/L (5-34); Albumin 5.1 g/dL (3.5-5.0); Alkaline Phosphatase 91 U/L (40-150); Anion Gap 19 mmol/L (10-20); BUN (Urea Nitrogen) 14 mg/dL (7.0-18.7); Bilirubin, Total 0.6 mg/dL (0.2-1.2); Calc. Creatinine Clearance 0 mL/min (70-130); Calcium 10.8 mg/dL (7.8-10.44); Carbon Dioxide 19 mmol/L (22-29); Chloride 104 mmol/L (98-107); Estimated GFR-MDRD 68; Globulin 3.9 g/dL (2.4-3.5); Glucose 91 mg/dL (70-105); Lipase 9 U/L (8-78); Potassium 3.6 mmol/L (3.5-5.1); Sodium 138 mmol/L (136-145)
[2017-08-26] MEDS ORDERED: Ondansetron HCl/PF 4 MG/2 ML Vial ONE (20:55)
[2017-08-26] MEDS ORDERED: cefTRIAXone\\ROCEPHIN 2 GM in Sodium Chloride 0.9% 100 ML IVPB SCH (22:30)
[2017-08-26 22:33] LABS: Amphetamine Not Detected (NotDetected); Barbiturates Screen Not Detected (NotDetected); Benzodiazepine Screen Detected (NotDetected); Cocaine Metabolite Screen Not Detected (NotDetected); Medtox Control Line Valid? VALID (VALID); Medtox Reader # READER 4; Methadone Not Detected (NotDetected); Methamphetamine Not Detected (NotDetected); Opiate Screen Not Detected (NotDetected); Oxycodone Screen Not Detected (NotDetected); Phencyclidine (PCP) Not Detected (NotDetected); THC/Cannabinoid Screen Not Detected (NotDetected); Tricyclic Screen Detected (NotDetected)
== END 2017-08-27 00:42 | disposition home or self-care (01) ==
LOC: ERS 18:16
DX: N39.0 Urinary tract infection, site not specified (principal); F32.9 Major depressive disorder, single episode, unspecified; F41.9 Anxiety disorder, unspecified; Z79.899 Other long term (current) drug therapy
CPT/HCPCS: 36415; 80053; 80306; 81003; 81015; 81025; 83690; 85025; 87086; 96361; 96374; 96375; J0696; J2270; J2405; J7050

== ENCOUNTER 2017-08-30 14:06 | Emergency (ER) | payer BC ==
[2017-08-30 14:52] LABS: #Lymphocytes 2.7 thou/uL (1.20-3.40); #Monocytes 0.5 thou/uL (0.11-0.59); %Basophils 0.5 % (0.0-1.0); %Eosinophils 0.5 % (0.0-10.0); %Lymphocytes 36.7 % (28.0-48.0); %Monocytes 7.3 % (0.0-4.0); %Neutrophils 55.1 % (31.0-61.0); Mean Corpuscular Hemoglobin 30.9 pg (25.0-35.0); Mean Corpuscular Volume 93.7 fl (77.0-87.0); Mean Platelet Volume 9.3 fL (7.4-10.4); Platelet Count 290 thou/uL (130-400); RBC Distribution Width 12.2 % (11.5-14.5); Red Blood Cell (RBC) Count 4.21 mill/uL (4.00-5.20); White Blood Cell (WBC) Count 7.3 thou/uL (4.8-10.8)
[2017-08-30 15:13] LABS: ALT (SGPT) 12 U/L (8-55); AST (SGOT) 15 U/L (5-34); Albumin 4.7 g/dL (3.5-5.0); Alkaline Phosphatase 85 U/L (40-150); Anion Gap 14 mmol/L (10-20); BUN (Urea Nitrogen) 9 mg/dL (7.0-18.7); Bilirubin, Total 0.5 mg/dL (0.2-1.2); Calc. Creatinine Clearance 0 mL/min (70-130); Calcium 9.8 mg/dL (7.8-10.44); Carbon Dioxide 23 mmol/L (22-29); Chloride 108 mmol/L (98-107); Estimated GFR-MDRD 81; Globulin 3.4 g/dL (2.4-3.5); Glucose 88 mg/dL (70-105); Potassium 3.3 mmol/L (3.5-5.1); Protein, Total 8.1 g/dL (6.0-8.3); Sodium 142 mmol/L (136-145)
[2017-08-30] MEDS ORDERED: Promethazine HCl 25 MG/ML VIAL ONE (16:35)
== END 2017-08-30 19:06 | disposition home or self-care (01) ==
LOC: ERS 14:06
DX: R10.11 Right upper quadrant pain (principal); R11.2 Nausea with vomiting, unspecified; F32.9 Major depressive disorder, single episode, unspecified; F41.9 Anxiety disorder, unspecified; Z79.899 Other long term (current) drug therapy
CPT/HCPCS: 36415; 80053; 85025; 96361; 96374; 96375; J2550

== ENCOUNTER 2017-08-31 18:35 | Emergency (ER) | payer BC ==
[2017-08-31] MEDS ORDERED: Lorazepam 2 MG/ML VIAL ONE (18:46)
[2017-08-31] MEDS ORDERED: Ondansetron HCl/PF 4 MG/2 ML Vial ONE (18:46)
[2017-08-31 19:09] LABS: Mean Corpuscular HGB CONC 33.2 g/dL (32.0-36.0); Mean Corpuscular Hemoglobin 30.9 pg (25.0-35.0); Mean Corpuscular Volume 92.9 fl (77.0-87.0); Mean Platelet Volume 9.4 fL (7.4-10.4); Platelet Count 232 thou/uL (130-400); RBC Distribution Width 11.9 % (11.5-14.5); Red Blood Cell (RBC) Count 3.89 mill/uL (4.00-5.20); White Blood Cell (WBC) Count 8.4 thou/uL (4.8-10.8)
[2017-08-31 19:16] LABS: BHCG - Serum Negative (NEGATIVE); Pregs Control Background? CLEAR/WHITE (CLR/WHITE); Pregs Control Bar Appear? YES (CONTROL BAR)
[2017-08-31 19:30] LABS: ALT (SGPT) 11 U/L (8-55); AST (SGOT) 17 U/L (5-34); Albumin 4.4 g/dL (3.5-5.0); Alkaline Phosphatase 77 U/L (40-150); Anion Gap 19 mmol/L (10-20); BUN (Urea Nitrogen) 10 mg/dL (7.0-18.7); Bilirubin, Total 0.8 mg/dL (0.2-1.2); CK (CPK) 65 U/L (29-168); Calc. Creatinine Clearance 0 mL/min (70-130); Calcium 9.8 mg/dL (7.8-10.44); Carbon Dioxide 16 mmol/L (22-29); Chloride 105 mmol/L (98-107); Estimated GFR-MDRD 86; Globulin 3.1 g/dL (2.4-3.5); Glucose 63 mg/dL (70-105); Lipase 8 U/L (8-78); Potassium 3.4 mmol/L (3.5-5.1); Protein, Total 7.5 g/dL (6.0-8.3); Sodium 137 mmol/L (136-145)
[2017-08-31 19:34] LABS: Band 2 % (5-11); Lymphocytes 54 % (28-48); MDiff Complete? YES; Monocytes 4 % (0-4); Neutrophil 40 % (31-61); PLT Morphology Comment Appears Adequate
--- NOTE | 2017-08-31 19:39 | RAD ---
FRONTAL VIEW CHEST 08/31/17 COMPARISON: 04/12/17 CLINICAL HISTORY: Chest pain. FINDINGS: There is no consolidation, effusion, or pneumothorax. The cardiac silhouette is normal in size. Leads overlie the chest limiting visualization. Metallic clips are seen at the right upper abdomen. IMPRESSION: No focal consolidation. POS: [facility]
== END 2017-08-31 20:10 | disposition home or self-care (01) ==
LOC: ERS 18:35
DX: E86.0 Dehydration (principal); R06.4 Hyperventilation; R10.9 Unspecified abdominal pain; F32.9 Major depressive disorder, single episode, unspecified; Z79.899 Other long term (current) drug therapy
CPT/HCPCS: 36415; 71045; 80053; 82550; 83605; 83690; 84703; 85025; 93005; 96361; 96374; 96375; J2060; J2270; J2405

== ENCOUNTER 2021-04-19 08:05 | Emergency (ER) | payer OTHER ==
[2021-04-19 08:43] LABS: #Eosinphils 0.1 thou/uL (0.0-0.7); #Monocytes 0.7 thou/uL (0.11-0.59); #Neutrophils 7.6 thou/uL (1.40-6.50); %Basophils 0.4 % (0.0-1.0); %Eosinophils 0.8 % (0.0-10.0); %Lymphocytes 26.4 % (21.0-51.0); %Neutrophils 66.4 % (42.0-75.0); Hemoglobin 12.7 g/dL (12.0-16.0); Mean Corpuscular Hemoglobin 28.1 pg (27.0-31.0); Mean Corpuscular Volume 90.6 fL (78.0-98.0); Mean Platelet Volume 8.4 fL (7.4-10.4); Platelet Count 364 thou/uL (130-400); Red Blood Cell (RBC) Count 4.54 mill/uL (4.20-5.40); White Blood Cell (WBC) Count 11.5 thou/uL (4.8-10.8)
[2021-04-19 09:02] LABS: ALT (SGPT) 65 U/L (8-55); AST (SGOT) 63 U/L (5-34); Albumin 4.1 g/dL (3.5-5.0); Alkaline Phosphatase 70 U/L (40-110); Anion Gap 11 mmol/L (10-20); BUN (Urea Nitrogen) 12 mg/dL (7.0-18.7); Bilirubin, Total 0.5 mg/dL (0.2-1.2); Calc. Creatinine Clearance 0 mL/min (70-130); Calcium 9.5 mg/dL (7.8-10.44); Carbon Dioxide 25 mmol/L (22-29); Chloride 106 mmol/L (98-107); Globulin 3.2 g/dL (2.4-3.5); Glucose 91 mg/dL (70-105); Potassium 4.7 mmol/L (3.5-5.1); Protein, Total 7.3 g/dL (6.0-8.3); Sodium 137 mmol/L (136-145)
== END 2021-04-19 10:09 | disposition home or self-care (01) ==
LOC: ERS 08:05
DX: S60.511A Abrasion of right hand, initial encounter (principal); M79.651 Pain in right thigh; R07.89 Other chest pain; R00.0 Tachycardia, unspecified; V43.52XA Car driver injured in collision with other type car in traffic accident, initial encounter; Y92.410 Unspecified street and highway as the place of occurrence of the external cause
CPT/HCPCS: 70450; 71260; 72125; 74177; 80053; 85025; 93005

== ENCOUNTER 2021-11-05 09:03 | Inpatient (IN) | payer BC ==
[2021-11-05] MEDS ORDERED: Ondansetron PF 4 MG/2 ML Vial ONE (09:36)
[2021-11-05 09:48] LABS: #Eosinphils 0.1 thou/uL (0.0-0.7); #Lymphocytes 2.5 thou/uL (1.20-3.40); #Monocytes 0.6 thou/uL (0.11-0.59); #Neutrophils 7.1 thou/uL (1.40-6.50); %Basophils 0.3 % (0.0-1.0); %Eosinophils 1.1 % (0.0-10.0); %Lymphocytes 24.1 % (21.0-51.0); %Monocytes 6.1 % (0.0-10.0); %Neutrophils 68.4 % (42.0-75.0); Hemoglobin 13.4 g/dL (12.0-16.0); Mean Corpuscular HGB CONC 32.6 g/dL (32.0-36.0); Mean Corpuscular Hemoglobin 29.6 pg (27.0-31.0); Mean Corpuscular Volume 90.9 fL (78.0-98.0); Mean Platelet Volume 8.4 fL (7.4-10.4); Platelet Count 368 thou/uL (130-400); RBC Distribution Width 12.9 % (11.5-14.5); Red Blood Cell (RBC) Count 4.53 mill/uL (4.20-5.40); White Blood Cell (WBC) Count 10.3 thou/uL (4.8-10.8)
[2021-11-05 10:04] LABS: ALT (SGPT) 109 U/L (8-55); AST (SGOT) 72 U/L (5-34); Albumin 4.5 g/dL (3.5-5.0); Alkaline Phosphatase 72 U/L (40-110); Anion Gap 18 mmol/L (10-20); BUN (Urea Nitrogen) 10 mg/dL (7.0-18.7); Bilirubin, Total 0.6 mg/dL (0.2-1.2); Calc. Creatinine Clearance 0 mL/min (70-130); Calcium 9.3 mg/dL (7.8-10.44); Carbon Dioxide 20 mmol/L (22-29); Chloride 105 mmol/L (98-107); Globulin 3.4 g/dL (2.4-3.5); Glucose 70 mg/dL (70-105); Potassium 3.9 mmol/L (3.5-5.1); Protein, Total 7.9 g/dL (6.0-8.3); Sodium 139 mmol/L (136-145)
[2021-11-05 10:05] LABS: BHCG - Serum Negative (NEGATIVE); Pregs Control Background? CLEAR/WHITE (CLR/WHITE); Pregs Control Bar Appear? YES (CONTROL BAR)
[2021-11-05] MEDS ORDERED: Pantoprazole 40 MG VIAL ONE (10:12)
[2021-11-05 11:07] LABS: SARS-CoV-2 NAA Rapid Test Not Detected (NotDetected)
[2021-11-05 11:53] LABS: Bilirubin Negative (Negative); Blood, Urine 3+ (Negative); Clarity Turbid (Clear); Glucose, Urine (Dipstick) Normal (Negative); Ketone, Urine Greater than 150 mg/dL (Negative); Leukocyte 75 Leu/uL (Negative); Nitrite Negative (Negative); Protein, Urine (Dipstick) 70 mg/dL (Neg-Trace); RBC/HPF Greater than 50 HPF (0-3); Specific Gravity, Urine 1.033 (1.002-1.036); Urobilinogen 3 mg/dL (Less than 2)
[2021-11-05 11:57] LABS: Pregnancy Test - Urine (BHCG) Negative (Negative); Pregu Control Background? CLEAR/WHITE (CLR/WHITE); Pregu Control Bar Appear? YES (CONTROL BAR); Specific Gravity 1.033 (1.002-1.036)
[2021-11-05 12:03] LABS: Bacteria/HPF Rare-Few HPF (None Seen)
[2021-11-05] MEDS ORDERED: Ondansetron ODT 4 MG TAB PO PRN (14:18)
[2021-11-05] MEDS ORDERED: Acetaminophen 325 MG TAB PO PRN (14:18)
[2021-11-05] MEDS ORDERED: Iopamidol-370 76% 500 ML 1 ML ONE (14:37)
[2021-11-05] MEDS: Sodium Chloride 0.9% 1,000 ML IV SCH ×2 (15:27→23:24)
[2021-11-05] MEDS: Ondansetron PF 4 MG/2 ML Vial IVP PRN (18:24)
[2021-11-06 05:18] LABS: #Basophils 0.1 thou/uL (0.0-0.2); #Eosinphils 0.1 thou/uL (0.0-0.7); #Lymphocytes 3.5 thou/uL (1.20-3.40); #Monocytes 0.7 thou/uL (0.11-0.59); #Neutrophils 5.2 thou/uL (1.40-6.50); %Basophils 0.6 % (0.0-1.0); %Eosinophils 1.2 % (0.0-10.0); %Lymphocytes 36.3 % (21.0-51.0); %Monocytes 7.5 % (0.0-10.0); %Neutrophils 54.4 % (42.0-75.0); Hemoglobin 12.4 g/dL (12.0-16.0); Mean Corpuscular HGB CONC 32.4 g/dL (32.0-36.0); Mean Corpuscular Hemoglobin 29.9 pg (27.0-31.0); Mean Corpuscular Volume 92.4 fL (78.0-98.0); Mean Platelet Volume 8.4 fL (7.4-10.4); Platelet Count 320 thou/uL (130-400); RBC Distribution Width 12.7 % (11.5-14.5); Red Blood Cell (RBC) Count 4.14 mill/uL (4.20-5.40); White Blood Cell (WBC) Count 9.6 thou/uL (4.8-10.8)
[2021-11-06 05:40] LABS: ALT (SGPT) 82 U/L (8-55); AST (SGOT) 49 U/L (5-34); Albumin 3.8 g/dL (3.5-5.0); Alkaline Phosphatase 63 U/L (40-110); Anion Gap 13 mmol/L (10-20); BUN (Urea Nitrogen) 6 mg/dL (7.0-18.7); Bilirubin, Total 0.6 mg/dL (0.2-1.2); Calc. Creatinine Clearance 208 mL/min (70-130); Calcium 8.7 mg/dL (7.8-10.44); Carbon Dioxide 22 mmol/L (22-29); Chloride 107 mmol/L (98-107); Globulin 2.8 g/dL (2.4-3.5); Glucose 75 mg/dL (70-105); Potassium 3.8 mmol/L (3.5-5.1); Protein, Total 6.6 g/dL (6.0-8.3); Sodium 138 mmol/L (136-145)
[2021-11-06] MEDS: Sodium Chloride 0.9% 1,000 ML IV SCH ×3 (08:19→23:48)
[2021-11-06 14:34] VITALS: BMI 48.2
[2021-11-06] MEDS: Ondansetron PF 4 MG/2 ML Vial IVP PRN (16:17)
[2021-11-07 05:56] LABS: #Eosinphils 0.1 thou/uL (0.0-0.7); #Lymphocytes 3.1 thou/uL (1.20-3.40); #Monocytes 0.7 thou/uL (0.11-0.59); #Neutrophils 5.3 thou/uL (1.40-6.50); %Basophils 0.3 % (0.0-1.0); %Eosinophils 1.4 % (0.0-10.0); %Lymphocytes 33.7 % (21.0-51.0); %Monocytes 7.4 % (0.0-10.0); %Neutrophils 57.3 % (42.0-75.0); Hemoglobin 12.4 g/dL (12.0-16.0); Mean Corpuscular HGB CONC 33.1 g/dL (32.0-36.0); Mean Corpuscular Hemoglobin 30.6 pg (27.0-31.0); Mean Corpuscular Volume 92.3 fL (78.0-98.0); Mean Platelet Volume 8.4 fL (7.4-10.4); Platelet Count 321 thou/uL (130-400); RBC Distribution Width 12.9 % (11.5-14.5); Red Blood Cell (RBC) Count 4.06 mill/uL (4.20-5.40); White Blood Cell (WBC) Count 9.2 thou/uL (4.8-10.8)
[2021-11-07 06:19] LABS: ALT (SGPT) 79 U/L (8-55); AST (SGOT) 50 U/L (5-34); Albumin 3.8 g/dL (3.5-5.0); Alkaline Phosphatase 57 U/L (40-110); Anion Gap 14 mmol/L (10-20); BUN (Urea Nitrogen) 5 mg/dL (7.0-18.7); Bilirubin, Total 0.4 mg/dL (0.2-1.2); Calc. Creatinine Clearance 219 mL/min (70-130); Calcium 8.7 mg/dL (7.8-10.44); Carbon Dioxide 21 mmol/L (22-29); Chloride 107 mmol/L (98-107); Globulin 2.9 g/dL (2.4-3.5); Glucose 72 mg/dL (70-105); Potassium 3.7 mmol/L (3.5-5.1); Protein, Total 6.7 g/dL (6.0-8.3); Sodium 138 mmol/L (136-145)
[2021-11-07] MEDS: Sodium Chloride 0.9% 1,000 ML IV SCH ×3 (06:28→17:09)
[2021-11-07] MEDS: Ondansetron PF 4 MG/2 ML Vial IVP PRN (18:26)
[2021-11-07] MEDS ORDERED: Non-Formulary Item 1 EACH (Buspirone Hcl [Buspar] 15 MG Tab) PO SCH (21:00)
[2021-11-07] MEDS: busPIRone HCl 5 MG TAB PO SCH (22:01)
[2021-11-08 06:23] LABS: #Basophils 0.1 thou/uL (0.0-0.2); #Eosinphils 0.1 thou/uL (0.0-0.7); #Lymphocytes 4.2 thou/uL (1.20-3.40); #Monocytes 0.7 thou/uL (0.11-0.59); #Neutrophils 6.1 thou/uL (1.40-6.50); %Basophils 0.6 % (0.0-1.0); %Lymphocytes 37.7 % (21.0-51.0); %Monocytes 6.2 % (0.0-10.0); %Neutrophils 54.5 % (42.0-75.0); Hemoglobin 12.9 g/dL (12.0-16.0); Mean Corpuscular HGB CONC 32.9 g/dL (32.0-36.0); Mean Corpuscular Hemoglobin 29.9 pg (27.0-31.0); Mean Corpuscular Volume 90.8 fL (78.0-98.0); Mean Platelet Volume 8.5 fL (7.4-10.4); Platelet Count 356 thou/uL (130-400); RBC Distribution Width 12.7 % (11.5-14.5); Red Blood Cell (RBC) Count 4.31 mill/uL (4.20-5.40); White Blood Cell (WBC) Count 11.1 thou/uL (4.8-10.8)
[2021-11-08 06:42] LABS: ALT (SGPT) 83 U/L (8-55); AST (SGOT) 53 U/L (5-34); Albumin 4.2 g/dL (3.5-5.0); Alkaline Phosphatase 64 U/L (40-110); Anion Gap 16 mmol/L (10-20); BUN (Urea Nitrogen) 6 mg/dL (7.0-18.7); Bilirubin, Total 0.6 mg/dL (0.2-1.2); Calc. Creatinine Clearance 211 mL/min (70-130); Calcium 9.1 mg/dL (7.8-10.44); Carbon Dioxide 19 mmol/L (22-29); Chloride 107 mmol/L (98-107); Globulin 3.2 g/dL (2.4-3.5); Glucose 79 mg/dL (70-105); Potassium 3.5 mmol/L (3.5-5.1); Protein, Total 7.4 g/dL (6.0-8.3); Sodium 138 mmol/L (136-145)
[2021-11-08 07:02] LABS: HBCM Index 0.11 S/CO (0-0.79); HBSAg Index 0.24 S/CO (0-0.99); Hep A IgM AB Non-Reactive (NonReactive); Hep A IgM S/CO 0.24 S/CO (0-0.79); Hep B Surf Ag Non-Reactive S/CO (NonReactive); Hep C IgG Ab Non-Reactive (NonReactive); Hep C Index 0.08 S/CO (0-0.79); Hepatitis B Core IgM Abs Non-Reactive (NonReactive)
[2021-11-08] MEDS ORDERED: Non-Formulary Item 1 EACH (Buspirone Hcl [Buspirone Hcl] 15 MG Tablet) PO SCH (09:00)
[2021-11-08] MEDS: Sodium Chloride 0.9% 1,000 ML IV SCH ×3 (10:15→17:01)
[2021-11-08] MEDS ORDERED: Fentanyl 100 MCG/2 ML VIAL ONE (10:15)
[2021-11-08] MEDS: Venlafaxine HCl XR 75 MG CAP PO SCH (10:16)
[2021-11-08] MEDS: hydrOXYzine 25 MG TAB PO SCH (10:16)
[2021-11-08] MEDS: Saccharomyces boulardii 250 MG CAP PO SCH (10:16)
[2021-11-08] MEDS: busPIRone HCl 5 MG TAB PO SCH ×2 (10:16→21:15)
[2021-11-08] MEDS ORDERED: PROPOFOL 200 MG/20 ML VIAL ONE (10:33)
[2021-11-08] MEDS ORDERED: Dicyclomine 10 MG CAP PO PRN (10:46)
[2021-11-08] MEDS: Ondansetron PF 4 MG/2 ML Vial IVP PRN (16:56)
[2021-11-08] MEDS: Lactated Ringer's 1,000 ML IV SCH (19:06)
[2021-11-08] MEDS: Metoclopramide HCl 10 MG TAB PO SCH (21:16)
[2021-11-09 05:47] LABS: Anion Gap 19 mmol/L (10-20); BUN (Urea Nitrogen) 8 mg/dL (7.0-18.7); Calc. Creatinine Clearance 228 mL/min (70-130); Calcium 9.1 mg/dL (7.8-10.44); Carbon Dioxide 16 mmol/L (22-29); Chloride 106 mmol/L (98-107); Glucose 60 mg/dL (70-105); Potassium 3.7 mmol/L (3.5-5.1); Sodium 137 mmol/L (136-145)
[2021-11-09] MEDS: Metoclopramide HCl 10 MG TAB PO SCH ×4 (06:43→21:02)
[2021-11-09] MEDS: Lactated Ringer's 1,000 ML IV SCH ×2 (06:43→18:44)
[2021-11-09] MEDS: Venlafaxine HCl XR 75 MG CAP PO SCH (08:21)
[2021-11-09] MEDS: busPIRone HCl 5 MG TAB PO SCH ×2 (08:21→21:01)
[2021-11-09] MEDS: Saccharomyces boulardii 250 MG CAP PO SCH (08:21)
[2021-11-09] MEDS: hydrOXYzine 25 MG TAB PO SCH (08:22)
[2021-11-10] MEDS: Metoclopramide HCl 10 MG TAB PO SCH (06:28)
[2021-11-10] MEDS: Lactated Ringer's 1,000 ML IV SCH (06:28)
[2021-11-10 08:33] VITALS: BP 113/78; TEMP 97.8
[2021-11-10] MEDS: Saccharomyces boulardii 250 MG CAP PO SCH (09:32)
[2021-11-10] MEDS: hydrOXYzine 25 MG TAB PO SCH (09:32)
[2021-11-10] MEDS: busPIRone HCl 5 MG TAB PO SCH (09:32)
[2021-11-10] MEDS: Venlafaxine HCl XR 75 MG CAP PO SCH (09:32)
[2021-11-14 13:42] LABS: Routine O & P Final report (.)
== END 2021-11-10 12:50 | disposition home or self-care (01) | DRG 392 ==
LOC: ERS 09:03 → MSONC 13:30 → OBSVTOIN 11-08 09:10
PROVIDERS: ADMIT Hospitalist; ATTEND Internal Medicine
PROC: 0DB98ZX Excision of Duodenum, Via Natural or Artificial Opening Endoscopic, Diagnostic (ICD-10-PCS; principal; 2021-11-08)
DX: K31.84 Gastroparesis (principal); Z68.42 Body mass index [BMI] 45.0-49.9, adult; Z20.822 Contact with and (suspected) exposure to COVID-19; E66.01 Morbid (severe) obesity due to excess calories; F41.9 Anxiety disorder, unspecified; F32.A Depression, unspecified; E86.0 Dehydration; R74.01 Elevation of levels of liver transaminase levels; K76.0 Fatty (change of) liver, not elsewhere classified; E73.9 Lactose intolerance, unspecified; Z79.899 Other long term (current) drug therapy; Z90.49 Acquired absence of other specified parts of digestive tract
CPT/HCPCS: 36415; 74177; 78264; 80048; 80053; 80074; 81003; 81015; 81025; 83605; 83630; 83690; 84703; 85025; 87045; 87046; 87086; 87177; 87328; 87329; 87427; 87449; 88305; 96361; 96374; 96376; A9541; C9113; G0378; J2405; J2704; J3010; J7050; J7120; Q9967

== ENCOUNTER 2021-11-17 17:30 | Emergency (ER) | payer BC ==
[2021-11-17 18:02] LABS: #Eosinphils 0.1 thou/uL (0.0-0.7); #Lymphocytes 3.3 thou/uL (1.20-3.40); #Monocytes 0.7 thou/uL (0.11-0.59); #Neutrophils 4.3 thou/uL (1.40-6.50); %Basophils 0.2 % (0.0-1.0); %Eosinophils 0.8 % (0.0-10.0); %Lymphocytes 39.6 % (21.0-51.0); %Monocytes 7.9 % (0.0-10.0); %Neutrophils 51.5 % (42.0-75.0); Mean Corpuscular HGB CONC 32.7 g/dL (32.0-36.0); Mean Corpuscular Hemoglobin 30.2 pg (27.0-31.0); Mean Corpuscular Volume 92.4 fL (78.0-98.0); Mean Platelet Volume 9.3 fL (7.4-10.4); Platelet Count 293 thou/uL (130-400); RBC Distribution Width 12.9 % (11.5-14.5); White Blood Cell (WBC) Count 8.3 thou/uL (4.8-10.8)
[2021-11-17 18:26] LABS: Alcohol Less than 10 mg/dL (Less than 10); Salicylate Less than 8.0 mg/dL (15.0-30.0)
[2021-11-17 18:27] LABS: ALT (SGPT) 74 U/L (8-55); AST (SGOT) 44 U/L (5-34); Albumin 4.2 g/dL (3.5-5.0); Alkaline Phosphatase 64 U/L (40-110); Anion Gap 15 mmol/L (10-20); BUN (Urea Nitrogen) 8 mg/dL (7.0-18.7); Bilirubin, Total 0.5 mg/dL (0.2-1.2); Calc. Creatinine Clearance 0 mL/min (70-130); Calcium 9.4 mg/dL (7.8-10.44); Carbon Dioxide 22 mmol/L (22-29); Chloride 104 mmol/L (98-107); Globulin 3.1 g/dL (2.4-3.5); Glucose 79 mg/dL (70-105); Potassium 3.7 mmol/L (3.5-5.1); Protein, Total 7.3 g/dL (6.0-8.3); Sodium 137 mmol/L (136-145)
[2021-11-17 20:55] LABS: Bacteria/HPF None Seen HPF (None Seen); Bilirubin Negative (Negative); Blood, Urine Negative (Negative); Clarity Turbid (Clear); Glucose, Urine (Dipstick) Normal (Negative); Ketone, Urine 60 mg/dL (Negative); Leukocyte 250 Leu/uL (Negative); Mucous/LPF 4+ LPF (<2+); Nitrite Negative (Negative); Protein, Urine (Dipstick) 50 mg/dL (Neg-Trace); Specific Gravity, Urine 1.043 (1.002-1.036); Urobilinogen 3 mg/dL (Less than 2); pH, Urine 6.5 (5.0-9.0)
[2021-11-17 20:57] LABS: Alcohol Less than 10 mg/dL (Less than 10); Salicylate Less than 8.0 mg/dL (15.0-30.0)
[2021-11-17 20:58] LABS: Pregnancy Test - Urine (BHCG) Negative (Negative); Pregu Control Background? CLEAR/WHITE (CLR/WHITE); Pregu Control Bar Appear? YES (CONTROL BAR); Specific Gravity 1.043 (1.002-1.036)
[2021-11-17 21:01] LABS: Amphetamine Not Detected (NotDetected); Barbiturates Screen Not Detected (NotDetected); Benzodiazepine Screen Not Detected (NotDetected); Cocaine Metabolite Screen Not Detected (NotDetected); Methadone Not Detected (NotDetected); Methamphetamine Not Detected (NotDetected); Opiate Screen Not Detected (NotDetected); Oxycodone Screen Not Detected (NotDetected); Phencyclidine (PCP) Not Detected (NotDetected); THC/Cannabinoid Screen Not Detected (NotDetected); Tricyclic Screen Not Detected (NotDetected)
== END 2021-11-17 22:41 | disposition home or self-care (01) ==
LOC: ERS 17:30
DX: T39.1X2A Poisoning by 4-Aminophenol derivatives, intentional self-harm, initial encounter (principal); Z79.899 Other long term (current) drug therapy
CPT/HCPCS: 36415; 80053; 80306; 80307; 81003; 81015; 81025; 85025; 93005

== ENCOUNTER 2021-11-19 10:06 | Inpatient (IN) | payer BC ==
[2021-11-19] MEDS ORDERED: Metoclopramide HCl 10 MG/2 ML VIAL ONE (10:44)
[2021-11-19 10:49] LABS: #Basophils 0.1 thou/uL (0.0-0.2); #Eosinphils 0.1 thou/uL (0.0-0.7); #Lymphocytes 2.9 thou/uL (1.20-3.40); #Monocytes 0.7 thou/uL (0.11-0.59); #Neutrophils 5.2 thou/uL (1.40-6.50); %Basophils 0.7 % (0.0-1.0); %Eosinophils 1.2 % (0.0-10.0); %Lymphocytes 32.4 % (21.0-51.0); %Monocytes 7.9 % (0.0-10.0); %Neutrophils 57.9 % (42.0-75.0); Hemoglobin 13.7 g/dL (12.0-16.0); Mean Corpuscular HGB CONC 32.3 g/dL (32.0-36.0); Mean Corpuscular Hemoglobin 29.4 pg (27.0-31.0); Mean Platelet Volume 9.3 fL (7.4-10.4); Platelet Count 303 thou/uL (130-400); RBC Distribution Width 12.8 % (11.5-14.5); Red Blood Cell (RBC) Count 4.66 mill/uL (4.20-5.40)
[2021-11-19] MEDS ORDERED: Iopamidol-370 76% 500 ML 1 ML ONE (11:00)
[2021-11-19 11:05] LABS: Bacteria/HPF 4+ HPF (None Seen); Bilirubin Negative (Negative); Blood, Urine 3+ (Negative); Clarity Turbid (Clear); Glucose, Urine (Dipstick) Normal (Negative); Ketone, Urine 100 mg/dL (Negative); Leukocyte 500 Leu/uL (Negative); Nitrite Negative (Negative); Protein, Urine (Dipstick) 30 mg/dL (Neg-Trace); RBC/HPF 21-50 HPF (0-3); Specific Gravity, Urine 1.019 (1.002-1.036); Urobilinogen 3 mg/dL (Less than 2); WBC/HPF 21-50 HPF (0-3)
[2021-11-19 11:06] LABS: Pregnancy Test - Urine (BHCG) Negative (Negative); Pregu Control Background? CLEAR/WHITE (CLR/WHITE); Pregu Control Bar Appear? YES (CONTROL BAR); Specific Gravity 1.019 (1.002-1.036)
[2021-11-19] MEDS ORDERED: Famotidine/PF 20 mg/2ml Vial ONE (11:09)
[2021-11-19 11:10] LABS: ALT (SGPT) 84 U/L (8-55); AST (SGOT) 56 U/L (5-34); Albumin 4.5 g/dL (3.5-5.0); Alkaline Phosphatase 75 U/L (40-110); Anion Gap 17 mmol/L (10-20); BUN (Urea Nitrogen) 8 mg/dL (7.0-18.7); Bilirubin, Total 0.6 mg/dL (0.2-1.2); Calc. Creatinine Clearance 0 mL/min (70-130); Calcium 9.6 mg/dL (7.8-10.44); Carbon Dioxide 22 mmol/L (22-29); Chloride 104 mmol/L (98-107); Globulin 3.4 g/dL (2.4-3.5); Glucose 67 mg/dL (70-105); Lipase 9 U/L (8-78); Protein, Total 7.9 g/dL (6.0-8.3); Sodium 139 mmol/L (136-145)
[2021-11-19 11:13] LABS: Amphetamine Not Detected (NotDetected); Barbiturates Screen Not Detected (NotDetected); Benzodiazepine Screen Not Detected (NotDetected); Cocaine Metabolite Screen Not Detected (NotDetected); Methadone Not Detected (NotDetected); Methamphetamine Not Detected (NotDetected); Opiate Screen Not Detected (NotDetected); Oxycodone Screen Not Detected (NotDetected); Phencyclidine (PCP) Not Detected (NotDetected); THC/Cannabinoid Screen Not Detected (NotDetected); Tricyclic Screen Not Detected (NotDetected)
[2021-11-19] MEDS ORDERED: cefTRIAXone\\ROCEPHIN 1 GM VIAL ONE (14:23)
[2021-11-19 14:26] LABS: Acetaminophen Less than 10.0 mcg/mL (10.0-30.0); Alcohol Less than 10 mg/dL (Less than 10); Salicylate Less than 8.0 mg/dL (15.0-30.0)
[2021-11-19] MEDS ORDERED: Ondansetron ODT 4 MG TAB PO PRN (15:05)
[2021-11-19] MEDS ORDERED: Acetaminophen 325 MG TAB PO PRN (15:05)
[2021-11-19] MEDS: Metoclopramide HCl 10 MG/2 ML VIAL IVP SCH ×2 (17:06→20:09)
[2021-11-19] MEDS: Dextrose 5 % And 0.9 % NaCl 1,000 ML IV SCH ×2 (17:24→20:09)
[2021-11-19] MEDS: Famotidine/PF 20 mg/2ml Vial SLOW IVP SCH (20:09)
[2021-11-19 22:31] LABS: SARS-CoV-2 PCR by NAA Not Detected (NotDetected)
[2021-11-20 05:47] LABS: #Basophils 0.1 thou/uL (0.0-0.2); #Eosinphils 0.1 thou/uL (0.0-0.7); #Lymphocytes 3.1 thou/uL (1.20-3.40); #Monocytes 0.7 thou/uL (0.11-0.59); #Neutrophils 3.7 thou/uL (1.40-6.50); %Basophils 0.7 % (0.0-1.0); %Eosinophils 1.9 % (0.0-10.0); %Lymphocytes 40.5 % (21.0-51.0); %Monocytes 8.6 % (0.0-10.0); %Neutrophils 48.2 % (42.0-75.0); Hemoglobin 13.6 g/dL (12.0-16.0); Mean Corpuscular HGB CONC 33.2 g/dL (32.0-36.0); Mean Corpuscular Hemoglobin 30.1 pg (27.0-31.0); Mean Corpuscular Volume 90.7 fL (78.0-98.0); Mean Platelet Volume 7.6 fL (7.4-10.4); Platelet Count 274 thou/uL (130-400); RBC Distribution Width 16.5 % (11.5-14.5); Red Blood Cell (RBC) Count 4.51 mill/uL (4.20-5.40); White Blood Cell (WBC) Count 7.7 thou/uL (4.8-10.8)
[2021-11-20] MEDS: Dextrose 5 % And 0.9 % NaCl 1,000 ML IV SCH ×2 (05:57→20:03)
[2021-11-20 06:48] LABS: Anion Gap 15 mmol/L (10-20); BUN (Urea Nitrogen) 5 mg/dL (7.0-18.7); Calc. Creatinine Clearance 192 mL/min (70-130); Calcium 9.1 mg/dL (7.8-10.44); Carbon Dioxide 22 mmol/L (22-29); Chloride 106 mmol/L (98-107); Glucose 70 mg/dL (70-105); Potassium 3.6 mmol/L (3.5-5.1); Sodium 139 mmol/L (136-145)
[2021-11-20] MEDS: busPIRone HCl 10 MG TAB PO SCH (08:27)
[2021-11-20] MEDS: Famotidine/PF 20 mg/2ml Vial SLOW IVP SCH (08:27)
[2021-11-20] MEDS: Venlafaxine HCl XR 150 MG CAP PO SCH (08:27)
[2021-11-20] MEDS: Metoclopramide HCl 10 MG/2 ML VIAL IVP SCH ×4 (08:27→20:03)
[2021-11-20] MEDS: Ondansetron PF 4 MG/2 ML Vial IVP PRN (11:30)
[2021-11-20] MEDS ORDERED: Non-Formulary Item 1 EACH (Ondansetron Hcl [Zofran] 4 MG Tab) PO PRN (11:30)
[2021-11-20] MEDS ORDERED: Metoclopramide HCl 10 MG TAB PO SCH (11:30)
[2021-11-20] MEDS: Promethazine 25 MG TAB PO PRN (14:45)
[2021-11-20] MEDS: busPIRone HCl 5 MG TAB PO SCH (20:03)
[2021-11-20] MEDS: Famotidine 20 MG TAB PO SCH (20:03)
[2021-11-21 06:20] LABS: #Eosinphils 0.1 thou/uL (0.0-0.7); #Lymphocytes 3.1 thou/uL (1.20-3.40); #Monocytes 0.7 thou/uL (0.11-0.59); #Neutrophils 3.3 thou/uL (1.40-6.50); %Basophils 0.4 % (0.0-1.0); %Eosinophils 1.9 % (0.0-10.0); %Monocytes 9.4 % (0.0-10.0); %Neutrophils 45.2 % (42.0-75.0); Hemoglobin 12.3 g/dL (12.0-16.0); Mean Corpuscular HGB CONC 32.1 g/dL (32.0-36.0); Mean Corpuscular Hemoglobin 29.6 pg (27.0-31.0); Mean Corpuscular Volume 92.4 fL (78.0-98.0); Mean Platelet Volume 9.3 fL (7.4-10.4); Platelet Count 276 thou/uL (130-400); Red Blood Cell (RBC) Count 4.15 mill/uL (4.20-5.40); White Blood Cell (WBC) Count 7.3 thou/uL (4.8-10.8)
[2021-11-21 06:41] LABS: Anion Gap 11 mmol/L (10-20); BUN (Urea Nitrogen) Less than 4 mg/dL (7.0-18.7); Calc. Creatinine Clearance 169 mL/min (70-130); Calcium 8.9 mg/dL (7.8-10.44); Carbon Dioxide 27 mmol/L (22-29); Chloride 107 mmol/L (98-107); Glucose 81 mg/dL (70-105); Potassium 3.8 mmol/L (3.5-5.1); Sodium 141 mmol/L (136-145)
[2021-11-21] MEDS: Metoclopramide HCl 10 MG/2 ML VIAL IVP SCH ×4 (08:25→22:07)
[2021-11-21] MEDS: Venlafaxine HCl XR 150 MG CAP PO SCH (08:25)
[2021-11-21] MEDS: Saccharomyces boulardii 250 MG CAP PO SCH (08:25)
[2021-11-21] MEDS: busPIRone HCl 10 MG TAB PO SCH (08:25)
[2021-11-21] MEDS: Famotidine 20 MG TAB PO SCH ×2 (08:25→20:08)
[2021-11-21] MEDS: hydrOXYzine 25 MG TAB PO SCH (08:27)
[2021-11-21] MEDS: Dextrose 5 % And 0.9 % NaCl 1,000 ML IV SCH (08:31)
[2021-11-21] MEDS ORDERED: cefTRIAXone\\ROCEPHIN 1 GM in Sodium Chloride 0.9% 100 ML IVPB SCH (10:00)
[2021-11-21] MEDS: Promethazine 25 MG TAB PO PRN (13:51)
[2021-11-21] MEDS: Ondansetron PF 4 MG/2 ML Vial IVP PRN (15:35)
[2021-11-21] MEDS ORDERED: Morphine 2 MG/ML VIAL SLOW IVP PRN (15:39)
[2021-11-21] MEDS: busPIRone HCl 5 MG TAB PO SCH (20:08)
[2021-11-21] MEDS ORDERED: Promethazine 25 MG TAB PO PRN (22:20)
[2021-11-22] MEDS: Dextrose 5 % And 0.9 % NaCl 1,000 ML IV SCH ×2 (00:51→13:38)
[2021-11-22 06:28] LABS: #Basophils 0.1 thou/uL (0.0-0.2); #Eosinphils 0.1 thou/uL (0.0-0.7); #Lymphocytes 3.1 thou/uL (1.20-3.40); #Monocytes 0.6 thou/uL (0.11-0.59); #Neutrophils 3.7 thou/uL (1.40-6.50); %Basophils 0.7 % (0.0-1.0); %Eosinophils 1.8 % (0.0-10.0); %Monocytes 8.4 % (0.0-10.0); %Neutrophils 48.2 % (42.0-75.0); Hemoglobin 13.1 g/dL (12.0-16.0); Mean Corpuscular HGB CONC 32.2 g/dL (32.0-36.0); Mean Corpuscular Hemoglobin 29.8 pg (27.0-31.0); Mean Corpuscular Volume 92.7 fL (78.0-98.0); Mean Platelet Volume 9.3 fL (7.4-10.4); Platelet Count 269 thou/uL (130-400); RBC Distribution Width 13.3 % (11.5-14.5); Red Blood Cell (RBC) Count 4.41 mill/uL (4.20-5.40); White Blood Cell (WBC) Count 7.6 thou/uL (4.8-10.8)
[2021-11-22 06:52] LABS: Anion Gap 15 mmol/L (10-20); BUN (Urea Nitrogen) Less than 4 mg/dL (7.0-18.7); Calc. Creatinine Clearance 172 mL/min (70-130); Calcium 8.9 mg/dL (7.8-10.44); Carbon Dioxide 20 mmol/L (22-29); Chloride 110 mmol/L (98-107); Glucose 73 mg/dL (70-105); Potassium 3.7 mmol/L (3.5-5.1); Sodium 141 mmol/L (136-145)
[2021-11-22] MEDS: hydrOXYzine 25 MG TAB PO SCH (07:21)
[2021-11-22] MEDS: Metoclopramide HCl 10 MG/2 ML VIAL IVP SCH ×4 (07:22→20:16)
[2021-11-22] MEDS: busPIRone HCl 10 MG TAB PO SCH (07:22)
[2021-11-22] MEDS: Saccharomyces boulardii 250 MG CAP PO SCH (07:22)
[2021-11-22] MEDS: Famotidine 20 MG TAB PO SCH ×2 (07:22→20:16)
[2021-11-22] MEDS: Venlafaxine HCl XR 150 MG CAP PO SCH (07:22)
[2021-11-22 10:44] LABS: Albumin 3.8 g/dL (3.5-5.0)
[2021-11-22 10:47] LABS: Protein, Total 6.8 g/dL (6.0-8.3)
[2021-11-22 10:49] LABS: Bilirubin, Total 0.6 mg/dL (0.2-1.2)
[2021-11-22 10:50] LABS: Alkaline Phosphatase 67 U/L (40-110)
[2021-11-22 10:52] LABS: AST (SGOT) 40 U/L (5-34); Bilirubin, Direct 0.2 mg/dL (0.1-0.3)
[2021-11-22 10:53] LABS: ALT (SGPT) 61 U/L (8-55)
[2021-11-22 14:24] VITALS: BMI 45.8
[2021-11-22] MEDS: Dextrose 5%-Lactated Ringers 1,000 ML IV SCH (15:05)
[2021-11-22 15:53] LABS: Bilirubin Negative (Negative); Blood, Urine 3+ (Negative); Clarity Clear (Clear); Glucose, Urine (Dipstick) Normal (Negative); Ketone, Urine Trace mg/dL (Negative); Leukocyte 25 Leu/uL (Negative); Nitrite Negative (Negative); Protein, Urine (Dipstick) Negative (Neg-Trace); RBC/HPF Greater than 50 HPF (0-3); Squamous Epithelial 0-3 HPF (0-3); Urobilinogen Normal mg/dL (Less than 2)
[2021-11-22 15:54] LABS: Bacteria/HPF 1+ HPF (None Seen)
[2021-11-22] MEDS: busPIRone HCl 5 MG TAB PO SCH (20:16)
[2021-11-23] MEDS: Dextrose 5%-Lactated Ringers 1,000 ML IV SCH ×2 (04:55→17:58)
[2021-11-23 07:43] LABS: ALT (SGPT) 64 U/L (8-55); AST (SGOT) 41 U/L (5-34); Albumin 3.8 g/dL (3.5-5.0); Alkaline Phosphatase 68 U/L (40-110); Anion Gap 14 mmol/L (10-20); BUN (Urea Nitrogen) Less than 4 mg/dL (7.0-18.7); Bilirubin, Total 0.7 mg/dL (0.2-1.2); Calc. Creatinine Clearance 184 mL/min (70-130); Calcium 9.1 mg/dL (7.8-10.44); Carbon Dioxide 24 mmol/L (22-29); Chloride 106 mmol/L (98-107); Globulin 2.9 g/dL (2.4-3.5); Glucose 85 mg/dL (70-105); Magnesium 1.7 mg/dL (1.6-2.6); Potassium 3.5 mmol/L (3.5-5.1); Protein, Total 6.7 g/dL (6.0-8.3); Sodium 140 mmol/L (136-145)
[2021-11-23 07:56] LABS: Hep C IgG Ab Non-Reactive (NonReactive); Hep C Index 0.07 S/CO (0-0.79)
[2021-11-23] MEDS: Famotidine 20 MG TAB PO SCH ×2 (08:12→20:59)
[2021-11-23] MEDS: Metoclopramide HCl 10 MG/2 ML VIAL IVP SCH ×4 (08:12→21:00)
[2021-11-23] MEDS: Saccharomyces boulardii 250 MG CAP PO SCH (08:12)
[2021-11-23] MEDS: busPIRone HCl 10 MG TAB PO SCH (08:12)
[2021-11-23] MEDS: hydrOXYzine 25 MG TAB PO SCH (08:12)
[2021-11-23] MEDS: Venlafaxine HCl XR 150 MG CAP PO SCH (08:12)
[2021-11-23] MEDS ORDERED: Amino Acids 4.25 %/Dextrose 5% 2,000 ML BAG IV SCH (09:00)
[2021-11-23] MEDS: busPIRone HCl 5 MG TAB PO SCH (20:59)
[2021-11-24 06:35] LABS: ALT (SGPT) 53 U/L (8-55); AST (SGOT) 32 U/L (5-34); Albumin 3.7 g/dL (3.5-5.0); Alkaline Phosphatase 65 U/L (40-110); Anion Gap 12 mmol/L (10-20); BUN (Urea Nitrogen) Less than 4 mg/dL (7.0-18.7); Bilirubin, Total 0.8 mg/dL (0.2-1.2); Calc. Creatinine Clearance 175 mL/min (70-130); Carbon Dioxide 27 mmol/L (22-29); Chloride 104 mmol/L (98-107); Globulin 2.7 g/dL (2.4-3.5); Glucose 78 mg/dL (70-105); Potassium 3.4 mmol/L (3.5-5.1); Protein, Total 6.4 g/dL (6.0-8.3); Sodium 140 mmol/L (136-145)
[2021-11-24 06:51] LABS: HIV (1/2) Antibody/Antigen Non-Reactive (NonReactive); HIV 1/2 INDEX 0.21 S/CO (<1.00)
[2021-11-24] MEDS: hydrOXYzine 25 MG TAB PO SCH (08:22)
[2021-11-24] MEDS: Metoclopramide HCl 10 MG/2 ML VIAL IVP SCH ×2 (08:22→12:03)
[2021-11-24] MEDS: Venlafaxine HCl XR 150 MG CAP PO SCH (08:22)
[2021-11-24] MEDS: busPIRone HCl 10 MG TAB PO SCH (08:22)
[2021-11-24] MEDS: Saccharomyces boulardii 250 MG CAP PO SCH (08:22)
[2021-11-24] MEDS: Famotidine 20 MG TAB PO SCH (08:22)
[2021-11-24] MEDS: Dextrose 5%-Lactated Ringers 1,000 ML IV SCH (08:28)
[2021-11-24 09:07] VITALS: BP 111/68; TEMP 98.2
== END 2021-11-24 15:15 | disposition home or self-care (01) | DRG 391 ==
LOC: ERS 10:06 → T4-A 14:19 → OBSVTOIN 11-21 11:55
PROVIDERS: ADMIT Family Medicine; ATTEND Family Medicine
DX: K31.84 Gastroparesis (principal); E43 Unspecified severe protein-calorie malnutrition; Z68.42 Body mass index [BMI] 45.0-49.9, adult; N39.0 Urinary tract infection, site not specified; E87.2 Acidosis; F41.9 Anxiety disorder, unspecified; F32.A Depression, unspecified; E66.9 Obesity, unspecified; K29.80 Duodenitis without bleeding; K58.9 Irritable bowel syndrome, unspecified; Z79.899 Other long term (current) drug therapy; Z90.49 Acquired absence of other specified parts of digestive tract; Z94.89 Other transplanted organ and tissue status
CPT/HCPCS: 36415; 74177; 80048; 80053; 80306; 80307; 81001; 81003; 81015; 81025; 83690; 83735; 84100; 85025; 86803; 87086; 87324; 87389; 87449; 93005; 93010; 96365; 96375; J0696; J2405; J2765; J3490; J7042; Q0169; Q9967; S0028; U0003; U0005

== ENCOUNTER 2022-01-31 10:41 | Outpatient (CLI) | payer BC | END 2022-01-31 10:42 | disposition home or self-care (01) | LOC: BICRAD 10:41 | PROVIDERS: ATTEND Physician Assistant Medical | DX: K31.84 Gastroparesis (principal); R11.0 Nausea; R10.31 Right lower quadrant pain; K59.00 Constipation, unspecified | CPT/HCPCS: 74018 ==

== ENCOUNTER 2022-03-31 13:37 | Inpatient (IN) | payer BC ==
[~2022-03-31 13:37] MED LIST: Iopamidol-370 76% 500 ML 1 ML ONE
[2022-03-31 14:25] LABS: #Eosinphils 0.1 thou/uL (0.0-0.7); #Monocytes 0.8 thou/uL (0.11-0.59); #Neutrophils 8.6 thou/uL (1.40-6.50); %Basophils 0.1 % (0.0-1.0); %Eosinophils 0.4 % (0.0-10.0); %Lymphocytes 29.6 % (21.0-51.0); %Monocytes 5.9 % (0.0-10.0); %Neutrophils 63.9 % (42.0-75.0); Hemoglobin 12.7 g/dL (12.0-16.0); Mean Corpuscular HGB CONC 33.8 g/dL (32.0-36.0); Mean Corpuscular Hemoglobin 30.1 pg (27.0-31.0); Mean Corpuscular Volume 89.2 fL (78.0-98.0); Mean Platelet Volume 8.6 fL (7.4-10.4); Platelet Count 370 thou/uL (130-400); RBC Distribution Width 12.4 % (11.5-14.5); Red Blood Cell (RBC) Count 4.22 mill/uL (4.20-5.40); White Blood Cell (WBC) Count 13.4 thou/uL (4.8-10.8)
[2022-03-31 14:45] LABS: ALT (SGPT) 26 U/L (8-55); AST (SGOT) 22 U/L (5-34); Albumin 4.6 g/dL (3.5-5.0); Alkaline Phosphatase 82 U/L (40-110); Anion Gap 17 mmol/L (10-20); BUN (Urea Nitrogen) 14 mg/dL (7.0-18.7); Bilirubin, Total 0.7 mg/dL (0.2-1.2); Calc. Creatinine Clearance 0 mL/min (70-130); Calcium 9.6 mg/dL (7.8-10.44); Carbon Dioxide 21 mmol/L (22-29); Chloride 103 mmol/L (98-107); Estimated GFR 82; Globulin 3.8 g/dL (2.4-3.5); Glucose 80 mg/dL (70-105); Potassium 3.8 mmol/L (3.5-5.1); Protein, Total 8.4 g/dL (6.0-8.3); Sodium 137 mmol/L (136-145)
[2022-03-31 14:59] LABS: BHCG - Serum Negative (NEGATIVE); Pregs Control Background? CLEAR/WHITE (CLR/WHITE); Pregs Control Bar Appear? YES (CONTROL BAR)
[2022-03-31] MEDS ORDERED: Ondansetron PF 4 MG/2 ML Vial ONE (15:00)
[2022-03-31] MEDS ORDERED: Dicyclomine 20 MG/2 ML VIAL ONE (15:12)
[2022-03-31 15:37] LABS: SARS-CoV-2 NAA Rapid Test Not Detected (NotDetected)
[2022-03-31 15:40] LABS: Bacteria/HPF 2+ HPF (None Seen); Bilirubin Negative (Negative); Blood, Urine Negative (Negative); Clarity Turbid (Clear); Glucose, Urine (Dipstick) Normal (Negative); Ketone, Urine 80 mg/dL (Negative); Leukocyte 500 Leu/uL (Negative); Nitrite Negative (Negative); Protein, Urine (Dipstick) 30 mg/dL (Neg-Trace); RBC/HPF 0-3 HPF (0-3); Specific Gravity, Urine 1.035 (1.002-1.036); WBC/HPF Greater than 50 HPF (0-3); pH, Urine 6.5 (5.0-9.0)
[2022-03-31] MEDS ORDERED: cefTRIAXone\\ROCEPHIN 2 GM VIAL ONE (17:12)
[2022-03-31] MEDS ORDERED: Acetaminophen 325 MG TAB PO PRN (17:35)
[2022-03-31] MEDS ORDERED: Ondansetron PF 4 MG/2 ML Vial IVP PRN (18:27)
[2022-03-31] MEDS: Sodium Chloride 0.9% 1,000 ML IV SCH ×2 (19:10→23:04)
[2022-03-31] MEDS: busPIRone HCl 5 MG TAB PO SCH (20:43)
[2022-03-31] MEDS: Metoclopramide HCl 10 MG/2 ML VIAL IVP SCH (20:47)
[2022-03-31] MEDS: Mirtazapine 15 MG TAB PO SCH (20:56)
[2022-03-31 23:41] LABS: Bilirubin Negative (Negative); Blood, Urine Negative (Negative); Clarity Clear (Clear); Glucose, Urine (Dipstick) Normal (Negative); Ketone, Urine Negative (Negative); Leukocyte Negative Leu/uL (Negative); Nitrite Negative (Negative); Protein, Urine (Dipstick) Negative (Neg-Trace); RBC/HPF None Seen HPF (0-3); Specific Gravity, Urine 1.017 (1.002-1.036); Squamous Epithelial 0-3 HPF (0-3); Urobilinogen Normal mg/dL (Less than 2); WBC/HPF 0-3 HPF (0-3)
[2022-03-31 23:42] LABS: Bacteria/HPF 1+ HPF (None Seen); Urine Culture Reflex Yes Yes
[2022-04-01] MEDS: Sodium Chloride 0.9% 1,000 ML IV SCH ×3 (04:02→10:44)
[2022-04-01] MEDS: Metoclopramide HCl 10 MG/2 ML VIAL IVP SCH ×3 (06:02→20:47)
[2022-04-01 06:45] LABS: #Eosinphils 0.1 thou/uL (0.0-0.7); #Lymphocytes 3.1 thou/uL (1.20-3.40); #Monocytes 0.6 thou/uL (0.11-0.59); #Neutrophils 5.1 thou/uL (1.40-6.50); %Basophils 0.2 % (0.0-1.0); %Eosinophils 0.6 % (0.0-10.0); %Monocytes 6.3 % (0.0-10.0); %Neutrophils 57.8 % (42.0-75.0); Hemoglobin 11.1 g/dL (12.0-16.0); Mean Corpuscular HGB CONC 33.4 g/dL (32.0-36.0); Mean Corpuscular Hemoglobin 30.4 pg (27.0-31.0); Mean Platelet Volume 8.4 fL (7.4-10.4); Platelet Count 303 thou/uL (130-400); RBC Distribution Width 12.4 % (11.5-14.5); Red Blood Cell (RBC) Count 3.65 mill/uL (4.20-5.40); White Blood Cell (WBC) Count 8.9 thou/uL (4.8-10.8)
[2022-04-01 07:01] LABS: Anion Gap 10 mmol/L (10-20); BUN (Urea Nitrogen) 9 mg/dL (7.0-18.7); Calc. Creatinine Clearance 176 mL/min (70-130); Calcium 8.3 mg/dL (7.8-10.44); Carbon Dioxide 23 mmol/L (22-29); Chloride 110 mmol/L (98-107); Estimated GFR 97; Glucose 70 mg/dL (70-105); Potassium 4.1 mmol/L (3.5-5.1); Sodium 139 mmol/L (136-145)
[2022-04-01] MEDS: Venlafaxine HCl XR 75 MG CAP PO SCH (08:42)
[2022-04-01] MEDS: busPIRone HCl 10 MG TAB PO SCH (08:42)
[2022-04-01] MEDS: Enoxaparin Sodium 40 MG/0.4 ML SYRINGE SC SCH (08:42)
[2022-04-01] MEDS: Saccharomyces boulardii 250 MG CAP PO SCH (08:44)
[2022-04-01] MEDS ORDERED: Promethazine HCl 12.5 MG in Sodium Chloride 0.9% 50 ML IVPB PRN (16:45)
[2022-04-01] MEDS: Mirtazapine 15 MG TAB PO SCH (20:46)
[2022-04-01] MEDS: busPIRone HCl 5 MG TAB PO SCH (20:46)
[2022-04-02] MEDS: Sodium Chloride 0.9% 1,000 ML IV SCH ×2 (01:07→11:34)
[2022-04-02] MEDS: Metoclopramide HCl 10 MG/2 ML VIAL IVP SCH (05:06)
[2022-04-02 06:03] LABS: #Eosinphils 0.1 thou/uL (0.0-0.7); #Monocytes 0.7 thou/uL (0.11-0.59); #Neutrophils 6.8 thou/uL (1.40-6.50); %Basophils 0.4 % (0.0-1.0); %Eosinophils 0.9 % (0.0-10.0); %Lymphocytes 27.9 % (21.0-51.0); %Monocytes 6.8 % (0.0-10.0); Hemoglobin 11.4 g/dL (12.0-16.0); Mean Corpuscular HGB CONC 32.7 g/dL (32.0-36.0); Mean Corpuscular Hemoglobin 29.5 pg (27.0-31.0); Mean Corpuscular Volume 90.1 fL (78.0-98.0); Mean Platelet Volume 8.4 fL (7.4-10.4); Platelet Count 316 thou/uL (130-400); RBC Distribution Width 12.4 % (11.5-14.5); Red Blood Cell (RBC) Count 3.86 mill/uL (4.20-5.40); White Blood Cell (WBC) Count 10.7 thou/uL (4.8-10.8)
[2022-04-02 06:23] LABS: Anion Gap 14 mmol/L (10-20); BUN (Urea Nitrogen) 7 mg/dL (7.0-18.7); Calc. Creatinine Clearance 168 mL/min (70-130); Carbon Dioxide 20 mmol/L (22-29); Chloride 108 mmol/L (98-107); Estimated GFR 92; Glucose 63 mg/dL (70-105); Potassium 4.3 mmol/L (3.5-5.1); Sodium 138 mmol/L (136-145)
[2022-04-02] MEDS: Saccharomyces boulardii 250 MG CAP PO SCH (08:37)
[2022-04-02] MEDS: busPIRone HCl 10 MG TAB PO SCH (08:37)
[2022-04-02] MEDS: Enoxaparin Sodium 40 MG/0.4 ML SYRINGE SC SCH (08:37)
[2022-04-02] MEDS: Venlafaxine HCl XR 75 MG CAP PO SCH (08:38)
[2022-04-02] MEDS: Metoclopramide 10 MG/10 ML UDCUP PO SCH ×3 (11:29→21:04)
[2022-04-02] MEDS: Ondansetron PF 4 MG/2 ML Vial IVP SCH ×2 (11:31→17:45)
[2022-04-02] MEDS: busPIRone HCl 5 MG TAB PO SCH (21:04)
[2022-04-02] MEDS: Mirtazapine 15 MG TAB PO SCH (21:04)
[2022-04-02] MEDS: Sodium Chloride 0.45% 1,000 ML IV SCH (21:07)
[2022-04-03] MEDS: Ondansetron PF 4 MG/2 ML Vial IVP SCH ×5 (01:19→23:39)
[2022-04-03 07:19] LABS: Anion Gap 14 mmol/L (10-20); BUN (Urea Nitrogen) 7 mg/dL (7.0-18.7); Calc. Creatinine Clearance 176 mL/min (70-130); Calcium 9.4 mg/dL (7.8-10.44); Carbon Dioxide 21 mmol/L (22-29); Chloride 103 mmol/L (98-107); Estimated GFR 97; Glucose 66 mg/dL (70-105); Potassium 3.6 mmol/L (3.5-5.1); Sodium 134 mmol/L (136-145)
[2022-04-03] MEDS: Saccharomyces boulardii 250 MG CAP PO SCH (08:32)
[2022-04-03] MEDS: busPIRone HCl 10 MG TAB PO SCH ×3 (08:32→19:33)
[2022-04-03] MEDS: Venlafaxine HCl XR 75 MG CAP PO SCH (08:32)
[2022-04-03] MEDS: Metoclopramide 10 MG/10 ML UDCUP PO SCH ×4 (08:32→21:09)
[2022-04-03] MEDS: Enoxaparin Sodium 40 MG/0.4 ML SYRINGE SC SCH (08:34)
[2022-04-03] MEDS ORDERED: Lorazepam (BATCHED) 2 MG/ML SYR SLOW IVP PRN (09:48)
[2022-04-03] MEDS ORDERED: Midazolam HCl 2 mg/2 ml Vial SLOW IVP PRN (09:54)
[2022-04-03] MEDS: Lorazepam 0.5 MG TAB PO PRN (10:13)
[2022-04-03] MEDS: Sodium Chloride 0.45% 1,000 ML IV SCH (10:15)
[2022-04-03] MEDS ORDERED: Venlafaxine HCl XR 75 MG CAP PO SCH (12:00)
[2022-04-03] MEDS: Mirtazapine 15 MG TAB PO SCH (21:09)
[2022-04-04] MEDS: Ondansetron PF 4 MG/2 ML Vial IVP SCH ×4 (05:47→23:02)
[2022-04-04 06:57] LABS: Anion Gap 14 mmol/L (10-20); BUN (Urea Nitrogen) 8 mg/dL (7.0-18.7); Calc. Creatinine Clearance 145 mL/min (70-130); Calcium 9.1 mg/dL (7.8-10.44); Carbon Dioxide 21 mmol/L (22-29); Chloride 106 mmol/L (98-107); Estimated GFR 79; Glucose 68 mg/dL (70-105); Potassium 3.8 mmol/L (3.5-5.1); Sodium 137 mmol/L (136-145)
[2022-04-04] MEDS: Metoclopramide 10 MG/10 ML UDCUP PO SCH ×4 (07:53→20:41)
[2022-04-04] MEDS: Venlafaxine HCl XR 75 MG CAP PO SCH (09:01)
[2022-04-04] MEDS: busPIRone HCl 10 MG TAB PO SCH ×3 (09:01→17:56)
[2022-04-04] MEDS: Saccharomyces boulardii 250 MG CAP PO SCH (09:01)
[2022-04-04] MEDS: Enoxaparin Sodium 40 MG/0.4 ML SYRINGE SC SCH (09:01)
[2022-04-04] MEDS: Lorazepam 0.5 MG TAB PO PRN ×2 (11:03→20:42)
[2022-04-04 13:14] VITALS: BMI 44.8
[2022-04-04] MEDS: Mirtazapine 15 MG TAB PO SCH (20:42)
[2022-04-05] MEDS: Ondansetron PF 4 MG/2 ML Vial IVP SCH ×4 (05:27→23:49)
[2022-04-05 06:19] LABS: #Eosinphils 0.1 thou/uL (0.0-0.7); #Lymphocytes 3.1 thou/uL (1.20-3.40); #Monocytes 0.9 thou/uL (0.11-0.59); #Neutrophils 8.1 thou/uL (1.40-6.50); %Basophils 0.2 % (0.0-1.0); %Eosinophils 0.8 % (0.0-10.0); %Lymphocytes 25.6 % (21.0-51.0); %Monocytes 7.6 % (0.0-10.0); %Neutrophils 65.8 % (42.0-75.0); Mean Corpuscular HGB CONC 31.5 g/dL (32.0-36.0); Mean Corpuscular Hemoglobin 29.2 pg (27.0-31.0); Mean Corpuscular Volume 92.6 fL (78.0-98.0); Mean Platelet Volume 8.7 fL (7.4-10.4); Platelet Count 354 thou/uL (130-400); Red Blood Cell (RBC) Count 4.11 mill/uL (4.20-5.40); White Blood Cell (WBC) Count 12.3 thou/uL (4.8-10.8)
[2022-04-05 06:37] LABS: ALT (SGPT) 24 U/L (8-55); AST (SGOT) 21 U/L (5-34); Albumin 4.1 g/dL (3.5-5.0); Alkaline Phosphatase 72 U/L (40-110); Anion Gap 17 mmol/L (10-20); BUN (Urea Nitrogen) 9 mg/dL (7.0-18.7); Bilirubin, Total 0.5 mg/dL (0.2-1.2); Calc. Creatinine Clearance 159 mL/min (70-130); Calcium 9.2 mg/dL (7.8-10.44); Carbon Dioxide 21 mmol/L (22-29); Chloride 104 mmol/L (98-107); Estimated GFR 89; Globulin 3.5 g/dL (2.4-3.5); Glucose 73 mg/dL (70-105); Phosphorus 4.1 mg/dL (2.3-4.7); Potassium 3.6 mmol/L (3.5-5.1); Protein, Total 7.6 g/dL (6.0-8.3); Sodium 138 mmol/L (136-145)
[2022-04-05] MEDS: Saccharomyces boulardii 250 MG CAP PO SCH (08:12)
[2022-04-05] MEDS: Metoclopramide 10 MG/10 ML UDCUP PO SCH ×4 (08:12→20:03)
[2022-04-05] MEDS: busPIRone HCl 10 MG TAB PO SCH ×3 (08:12→17:33)
[2022-04-05] MEDS: Venlafaxine HCl XR 75 MG CAP PO SCH (08:12)
[2022-04-05] MEDS: Enoxaparin Sodium 40 MG/0.4 ML SYRINGE SC SCH ×2 (08:12→20:04)
[2022-04-05] MEDS: Lorazepam 0.5 MG TAB PO PRN ×2 (13:32→20:03)
[2022-04-05] MEDS: Mirtazapine 15 MG TAB PO SCH (20:03)
[2022-04-06] MEDS: Ondansetron PF 4 MG/2 ML Vial IVP SCH ×2 (05:42→11:34)
[2022-04-06 09:02] LABS: #Basophils 0.1 thou/uL (0.0-0.2); #Eosinphils 0.1 thou/uL (0.0-0.7); #Lymphocytes 3.4 thou/uL (1.20-3.40); #Monocytes 0.8 thou/uL (0.11-0.59); #Neutrophils 7.6 thou/uL (1.40-6.50); %Basophils 0.7 % (0.0-1.0); %Eosinophils 0.7 % (0.0-10.0); %Lymphocytes 28.3 % (21.0-51.0); %Monocytes 6.4 % (0.0-10.0); Hemoglobin 12.6 g/dL (12.0-16.0); Mean Corpuscular HGB CONC 32.4 g/dL (32.0-36.0); Mean Corpuscular Hemoglobin 29.5 pg (27.0-31.0); Mean Corpuscular Volume 91.3 fL (78.0-98.0); Platelet Count 350 thou/uL (130-400); RBC Distribution Width 12.8 % (11.5-14.5); Red Blood Cell (RBC) Count 4.25 mill/uL (4.20-5.40); White Blood Cell (WBC) Count 11.8 thou/uL (4.8-10.8)
[2022-04-06] MEDS: Enoxaparin Sodium 40 MG/0.4 ML SYRINGE SC SCH (09:11)
[2022-04-06] MEDS: busPIRone HCl 10 MG TAB PO SCH ×3 (09:11→16:22)
[2022-04-06] MEDS: Venlafaxine HCl XR 75 MG CAP PO SCH (09:11)
[2022-04-06] MEDS: Metoclopramide 10 MG/10 ML UDCUP PO SCH ×3 (09:11→16:22)
[2022-04-06] MEDS: Saccharomyces boulardii 250 MG CAP PO SCH (09:11)
[2022-04-06 09:31] LABS: ALT (SGPT) 24 U/L (8-55); AST (SGOT) 20 U/L (5-34); Albumin 4.4 g/dL (3.5-5.0); Alkaline Phosphatase 79 U/L (40-110); Anion Gap 15 mmol/L (10-20); BUN (Urea Nitrogen) 12 mg/dL (7.0-18.7); Bilirubin, Total 0.5 mg/dL (0.2-1.2); Calc. Creatinine Clearance 152 mL/min (70-130); Calcium 9.5 mg/dL (7.8-10.44); Carbon Dioxide 24 mmol/L (22-29); Chloride 104 mmol/L (98-107); Estimated GFR 84; Globulin 3.7 g/dL (2.4-3.5); Glucose 84 mg/dL (70-105); Magnesium 1.9 mg/dL (1.6-2.6); Phosphorus 3.5 mg/dL (2.3-4.7); Potassium 3.6 mmol/L (3.5-5.1); Protein, Total 8.1 g/dL (6.0-8.3); Sodium 139 mmol/L (136-145)
[2022-04-06 09:43] VITALS: BP 94/59; TEMP 98.3
== END 2022-04-06 18:02 | disposition home or self-care (01) | DRG 392 ==
LOC: ERS 13:37 → T4-B 16:57 → OBSVTOIN 04-02 12:29
PROVIDERS: ADMIT Internal Medicine; ATTEND Internal Medicine
DX: K31.84 Gastroparesis (principal); E87.1 Hypo-osmolality and hyponatremia; Z20.822 Contact with and (suspected) exposure to COVID-19; F32.A Depression, unspecified; K76.0 Fatty (change of) liver, not elsewhere classified; F41.9 Anxiety disorder, unspecified; D72.829 Elevated white blood cell count, unspecified; K52.9 Noninfective gastroenteritis and colitis, unspecified; Z79.899 Other long term (current) drug therapy; Z90.89 Acquired absence of other organs; Z90.49 Acquired absence of other specified parts of digestive tract
CPT/HCPCS: 36415; 74177; 80048; 80053; 81003; 81015; 83605; 83690; 83735; 84100; 84703; 85025; 87040; 87086; 87324; 87449; 93005; 96361; 96372; 96374; 96375; 96376; G0378; J0696; J1650; J2405; J2550; J2765; J7050; Q9967; U0002

== ENCOUNTER 2022-05-07 05:27 | Emergency (ER) | payer OTHER, BC ==
[2022-05-07] MEDS ORDERED: FENTANYL 50 MCG/ML VIAL 50 MCG/ML VIAL ONE (05:41)
[2022-05-07] MEDS ORDERED: CEFAZOLIN 2 GM VIAL ONE (05:41)
[2022-05-07 05:59] LABS: #Eosinphils 0.1 thou/uL (0.0-0.7); #Lymphocytes 3.1 thou/uL (1.20-3.40); #Monocytes 1.1 thou/uL (0.11-0.59); #Neutrophils 14.6 thou/uL (1.40-6.50); %Basophils 0.1 % (0.0-1.0); %Eosinophils 0.4 % (0.0-10.0); %Lymphocytes 16.3 % (21.0-51.0); %Neutrophils 77.3 % (42.0-75.0); Hemoglobin 11.9 g/dL (12.0-16.0); Mean Corpuscular HGB CONC 32.1 g/dL (32.0-36.0); Mean Corpuscular Hemoglobin 29.6 pg (27.0-31.0); Mean Corpuscular Volume 92.1 fL (78.0-98.0); Mean Platelet Volume 8.2 fL (7.4-10.4); Platelet Count 327 thou/uL (130-400); RBC Distribution Width 12.9 % (11.5-14.5); Red Blood Cell (RBC) Count 4.03 mill/uL (4.20-5.40); White Blood Cell (WBC) Count 18.8 thou/uL (4.8-10.8)
[2022-05-07 06:25] LABS: Acetaminophen Less than 10.0 mcg/mL (10.0-30.0); Alcohol Less than 10 mg/dL (Less than 10); Salicylate Less than 8.0 mg/dL (15.0-30.0)
[2022-05-07 06:26] LABS: ALT (SGPT) 46 U/L (8-55); AST (SGOT) 45 U/L (5-34); Alkaline Phosphatase 64 U/L (40-110); Anion Gap 13 mmol/L (10-20); BUN (Urea Nitrogen) 9 mg/dL (7.0-18.7); Bilirubin, Total 0.3 mg/dL (0.2-1.2); Calc. Creatinine Clearance 0 mL/min (70-130); Calcium 8.9 mg/dL (7.8-10.44); Carbon Dioxide 20 mmol/L (22-29); Chloride 109 mmol/L (98-107); Estimated GFR 105; Globulin 3.2 g/dL (2.4-3.5); Glucose 109 mg/dL (70-105); Potassium 3.7 mmol/L (3.5-5.1); Protein, Total 7.2 g/dL (6.0-8.3); Sodium 138 mmol/L (136-145)
[2022-05-07] MEDS ORDERED: Iopamidol-370 76% 500 ML 1 ML ONE (12:02)
== END 2022-05-07 08:10 | disposition home or self-care (01) ==
LOC: ERS 05:27
DX: S92.422A Displaced fracture of distal phalanx of left great toe, initial encounter for closed fracture (principal); S63.502A Unspecified sprain of left wrist, initial encounter; V89.2XXA Person injured in unspecified motor-vehicle accident, traffic, initial encounter; Y92.410 Unspecified street and highway as the place of occurrence of the external cause
CPT/HCPCS: 70450; 71260; 72125; 74177; 80053; 80307; 84484; 85025; 90471; 93005; 96374; 96375; G0390; Q9967

== ENCOUNTER 2023-06-18 17:00 | Outpatient (CLI) | payer BC | END 2023-06-18 17:01 | disposition home or self-care (01) | LOC: SLEEPLAB 17:00 | PROVIDERS: ATTEND Physician Assistant | DX: G47.33 Obstructive sleep apnea (adult) (pediatric) (principal); R53.83 Other fatigue; I51.89 Other ill-defined heart diseases | CPT/HCPCS: 95800 ==

== ENCOUNTER 2025-05-14 08:33 | Outpatient (CLI) | payer BC ==
[2025-05-14] MEDS ORDERED: Iopamidol 370 76% 100 ML VIAL ONE (14:37)
== END 2025-05-14 08:34 | disposition home or self-care (01) ==
LOC: CT 08:33
PROVIDERS: ATTEND Physician Assistant Medical
DX: K52.9 Noninfective gastroenteritis and colitis, unspecified (principal); K31.84 Gastroparesis; K92.1 Melena; R79.89 Other specified abnormal findings of blood chemistry; R10.9 Unspecified abdominal pain; K76.0 Fatty (change of) liver, not elsewhere classified
CPT/HCPCS: 74177; Q9967

== ENCOUNTER 2025-06-21 06:25 | Day surgery (SDC) | payer BC ==
[2025-06-18 10:21] VITALS: BMI 51.3
[2025-06-21] MEDS ORDERED: Lidocaine 1% PF 5 ML VIAL ONE (08:18)
[2025-06-21] MEDS ORDERED: Ketamine In 0.9 % NaCl 50 MG/5 ML SYRINGE ONE (08:18)
[2025-06-21] MEDS ORDERED: PROPOFOL 200 MG/20 ML VIAL ONE (08:31)
== END 2025-06-21 09:58 | disposition home or self-care (01) ==
LOC: SDC 06:25
PROVIDERS: ATTEND Internal Medicine Gastroenterology
PROC: 0DJ08ZZ Inspection of Upper Intestinal Tract, Via Natural or Artificial Opening Endoscopic (ICD-10-PCS; principal; 2025-06-21)
PROC: 0DBG8ZX Excision of Left Large Intestine, Via Natural or Artificial Opening Endoscopic, Diagnostic (ICD-10-PCS; principal; 2025-06-21)
PROC: 0DBF8ZX Excision of Right Large Intestine, Via Natural or Artificial Opening Endoscopic, Diagnostic (ICD-10-PCS; principal; 2025-06-21)
DX: K52.9 Noninfective gastroenteritis and colitis, unspecified (principal); D50.9 Iron deficiency anemia, unspecified; F32.A Depression, unspecified; F41.9 Anxiety disorder, unspecified; Z90.49 Acquired absence of other specified parts of digestive tract; Z79.899 Other long term (current) drug therapy
CPT/HCPCS: 88305; J2704; J3490